=== PATIENT | male | born 1950 | race Caucasian/White ===

== ENCOUNTER 2016-06-09 12:14 | Inpatient (IN) | payer BC, OTHER, MEDICARE ==
[~2016-06-09] VITALS: Ht 170.2 cm; Wt 86.9 kg
[2016-06-09] VITALS (11 sets, daily range): BP systolic 80–154; BP diastolic 50–74
[~2016-06-09 12:14] MED LIST: AMLO2.5T OR; ASPI325T OR; CARV12.5 OR; DILA2TAB OR; INSULANT SC; LIPI20TA OR; NITR0.4S SL; PLAV75TA2 OR; SENN8.6C PO; VITA-122 PO; [UNRECOGNIZED DRUG - REMARK] TOP; novalog SQ
[2016-06-09] MEDS ORDERED: ONDANSETRON 4MG/2ML VIAL (J2405) As Ordered ONE ×3 (13:16→21:15)
[2016-06-09] MEDS ORDERED: MORPHINE 4 MG/ML 1ML SYRINGE As Ordered ONE ×2 (13:16→17:26)
[2016-06-09 13:33] LABS: BASO % 0.4 % (0.0-1.0); EOS # 0.2 K/mm3 (0.0-0.50); EOS % 2.1 % (0.0-3.0); LARGE UNSTAINED CELL # 0.2 K/mm3 (0.0-0.4); LARGE UNSTAINED CELL % 2.3 % (0.0-4.0); LYMPH % 11.5 % (24.0-44.0); MEAN CORPUSCULAR HEMOGLOBIN 30.1 pg (27.0-33.0); MEAN CORPUSCULAR HGB CONC 33.5 g/dl (32.0-36.5); MEAN CORPUSCULAR VOLUME 89.7 fl (80.0-96.0); MONO # 0.5 K/mm3 (0.0-0.8); MONO % 5.4 % (0.0-5.0); NEUTROPHILS # 6.6 K/mm3 (1.8-7.7); NEUTROPHILS % 78.4 % (36.0-66.0); PLATELET COUNT, AUTOMATED 243 k/mm3 (150-450); RED CELL DISTRIBUTION WIDTH 13.2 % (11.5-14.5); WHITE BLOOD COUNT 8.4 K/mm3 (4.0-10.0)
[2016-06-09 13:45] LABS: ALBUMIN/GLOBULIN RATIO 0.63 (1.00-1.93); BILIRUBIN,DIRECT 0.2 MG/DL (0.0-0.2); BILIRUBIN,TOTAL 0.5 MG/DL (0.2-1.0); CALCIUM LEVEL 8.7 MG/DL (8.8-10.2); CREATININE FOR GFR 4.57 MG/DL (0.70-1.30); GLOMERULAR FILTRATION RATE 13.7 (>49); POTASSIUM SERUM 4.3 MEQ/L (3.5-5.1); TOTAL PROTEIN 7.8 GM/DL (6.4-8.2)
--- NOTE | 2016-06-09 14:22 | REP ---
Abdominal series 06/09/2016 Indication: Abdominal pain Comparison: PA and lateral chest 02/08/16 cardiac silhouette is mildly enlarged without change. Scattered areas of interstitial fibrotic scarring are noted bilaterally. Small area of parenchymal disease within the left infrahilar location is most compatible with interstitial scarring superimposed on rib rather than a developing pulmonary nodule. Bones and soft tissues are within normal limits Impression 1. Interstitial /fibrotic scarring bilaterally. 2. Ill-defined left infrahilar parenchymal density, likely scarring. Recommend correlation with a PA and lateral chest or CT of the chest in further characterization Flat and left-side down decubitus film 06/09/2016 Findings: There is moderate stool as well as some residual oral contrast or dense material from medication seen within the left colon and to a lesser extent transverse colon. The bowel gas pattern is nonspecific. There is no evidence of free intraperitoneal air or obstruction. There has been prior right total hip arthroplasty. Impression 1. Moderate stool within the transverse and left colon. Dense material primarily within the left colon represents previous oral contrast ingestion and/or medication. Signed by Katiuska Abbott MD 06/09/2016 01:59 P
[2016-06-09] MEDS ORDERED: ASPI1TAB PO (15:02)
[2016-06-09] MEDS ORDERED: ATOR1TAB21 PO (15:02)
[2016-06-09] MEDS ORDERED: LANTINJ4 SC (15:02)
[2016-06-09] MEDS ORDERED: TORS10TA3 PO (15:02)
[2016-06-09] MEDS ORDERED: CARV12.5 PO (15:02)
[2016-06-09] MEDS ORDERED: CINN500T PO (15:02)
[2016-06-09] MEDS ORDERED: INSUHUMDS SC (15:02)
[2016-06-09] MEDS ORDERED: PLAV75TA38 PO (15:02)
[2016-06-09] MEDS ORDERED: AMLO10TA2 PO (15:02)
--- NOTE | 2016-06-09 15:40 | HPEPDOC ---
Medical History and Physical Date of Admission 06/09/16 History and Physical ATTENDING: Dr. Dr Keating PCP: [facility] CC: Rectal pain HPI: 66yoM with a past medical history significant for CKD4, CAD, Cardiac stent , HLD, HTN, IDDM who states he was seen at ED 06/01 for urinary retention and coretz catheter was placed. Subsequently, he experienced constipation, groin pain and rectal pain and went to [facility] where he received imaging including contrast material. He was disimpacted of stool, given bowel care and released. He has persistent symptoms and went back again 06/06/16 and was transferred to [facility] for further eval where he was disimpacted again under sedation in ED and released. He continued to have leakage of stool and pain. Today he had appt with Urology and was referred to ED for evaluation. Denies any fevers, chills, weakness, fatigue, CHRISTINE, CP, SOB, cough, palpitations, abdominal pain, N/V/D or changes in bowel or bladder habits. Upon presentation to the hospital the patient was found to have obstipation, thus the hospitalist team was consulted. PMHx: CKD4- Dr Carrillo Nephrology [facility] CAD/Stents HLD HTN IDDM PSHX: Cardiac stents Rt CE Fistula Lt Forearm SOCHX: Resides in: [place] Marital Status: Kids: 3 Employment: retired [employer] Tobacco use: denies ETOH: denies Illicit Drugs: Denies Recent travel: denies Advanced directives: none FAMHX: Mother: pneumonia Father: [place] 69 Siblings: Sister Alive, well. Sister Ca tongue. Children: Alive, well Unexpected deaths due to medical reasons: None. ROS: As noted in HPI, otherwise 11pt ROS of systems reviewed and unremarkable PE: GEN: 66yoM, appears stated age. Well-nourished, well developed. No acute distress. Alert and oriented x 3. Pleasant, interactive. HEENT: Normocephalic, atraumatic. Pupils are equal, round, and reactive to light. Extraocular movements are intact. No nystagmus appreciated. Sclera are nonicteric. Conjunctiva without injection. Nose midline. Nasal turbinates without bogginess. No facial asymmetry. Moist mucous membranes. Dentition fair. Pharynx pink and moist, no cobblestoning. Neck supple, trachea midline. No lymphadenopathy or thyromegaly appreciated. CHEST: Regular rate and rhythm, +S1, +S2 LUNGS: Clear to auscultation bilaterally. No wheezes, rales, or rhonchi. Breathing appears symmetric and easy. Patient is speaking in full sentences. No accessory muscle use. ABD: Round, distended. hypoactive Bowel sounds throughout. No rebound or guarding. No costovertebral angle tenderness. Cortez catheter in place. EXT: Pulses 2+ bilaterally dorsalis pedis and radial. No lower extremity edema appreciated. SKIN: [place], dry, warm. Capillary refill <2sec. No rashes. NEURO: Alert and oriented x 3. Cranial nerves III-XII are intact. No focal deficits appreciated. CT: Moderate stool transverse and left colon A&P: 66yoM with a past medical history significant for CKD4, CAD, Cardiac stent , HLD, HTN, IDDM who states he was seen at ED 06/01 for urinary retention and cortez catheter was placed. Subsequently, he experienced constipation, groin pain and rectal pain and went to [facility] where he received imaging including contrast material. He was disimpacted of stool, given bowel care and released. He has persistent symptoms and went back again 06/06/16 and was transferred to [facility] for further eval where he was disimpacted again under sedation in ED and released. He continued to have leakage of stool and pain. Today he had appt with Urology and was referred to ED for evaluation. The patient will be admitted to /S for at least [address] Keating's service. Pt is discussed with Dr Shepard. 1. Obstipation. Clears. Bowel care- Leeannly. Request Dr Ibrahim to evaluate/ follow. Spoke with Dr Ibrahim who agrees to see Pt and evaluate. Recommends additional bowel care including Senokot and colace. 2. CKD4. Appears to be at baseline status. Follows with Nephrology in [place]. 3. CAD/Stents. Cont Norvasc/Coreg with hold parameters. ASA/Plavix. 4. HTN. Torsemide on hold. 5. IDDM. Clears. Levemir at reduced dose related to decreased po intake. SSI. 6. HTD. Statin DVT prophylaxis. SCD/TEDS The patient is a Full code Attending Note: I have independently examined this patient and all aspects of the exam and treatment decisions have been discusse. A member of the hospitalist staff will continue to follow this patient through discharge. Vital Signs 139/72 67 18 97.8 96 % Laboratory Data Labs 24H Laboratory Tests 2 06/09/16 13:12: Aspartate Amino Transf (AST/SGOT) 23, Alanine Aminotransferase (ALT/SGPT) 31, Alkaline Phosphatase 69, Total Bilirubin 0.5, Direct Bilirubin 0.2, Albumin 3.0L , Albumin/Globulin Ratio 0.63L, Anion Gap 10, White Blood Count 8.4, Red Blood Count 3.73L, Hemoglobin 11.2L, Hematocrit 33.4L, Mean Corpuscular Volume 89.7, Mean Corpuscular Hemoglobin 30.1, Mean Corpuscular Hemoglobin Concent 33.5, Red Cell Distribution Width 13.2, Platelet Count 243, Neutrophils (%) (Auto) 78.4H, Lymphocytes (%) (Auto) 11.5L, Monocytes (%) (Auto) 5.4H, Eosinophils (%) (Auto) 2.1, Basophils (%) (Auto) 0.4, Neutrophils # (Auto) 6.6, Lymphocytes # (Auto) 1.0L, Monocytes # (Auto) 0.5, Eosinophils # (Auto) 0.2, Basophils # (Auto) 0.0, Calcium Level 8.7L, Estimated Mean Plasma Glucose 134H, Glomerular Filtration Rate 13.7L, Hemoglobin A1c 6.3H, Large Unclassified Cells # 0.2, Large Unclassified Cells % 2.3, Total Protein 7.8 CBC/BMP Laboratory Tests 06/09/16 13:12 Red Blood Count 3.73 L, Mean Corpuscular Volume 89.7, Mean Corpuscular Hemoglobin 30.1, Mean Corpuscular Hemoglobin Concent 33.5, Red Cell Distribution Width 13.2, Neutrophils (%) (Auto) 78.4 H, Lymphocytes (%) (Auto) 11.5 L, Monocytes (%) (Auto) 5.4 H, Eosinophils (%) (Auto) 2.1, Basophils (%) ( Auto) 0.4, Neutrophils # (Auto) 6.6, Lymphocytes # (Auto) 1.0 L, Monocytes # ( Auto) 0.5, Eosinophils # (Auto) 0.2, Basophils # (Auto) 0.0 Home Medications Scheduled Amlodipine Besylate (Amlodipine Besylate) 10 Mg Tab 10 MG PO QHS Aspirin (Aspirin 81) 81 Mg Tab 81 MG PO QHS Atorvastatin Calcium (Atorvastatin Calcium) 20 Mg Tab 60 MG PO QHS Carvedilol (Carvedilol) 12.5 Mg Tab 25 MG PO QHS TAKES 2 12.5MG TABS AT QHS Cinnamon Bark (Cinnamon) 500 Mg Tab 1,000 MG PO QHS Clopidogrel Bisulfate (Plavix) 75 Mg Tab 75 MG PO QHS Insulin Glargine (Lantus Solostar) 100 Unit/Ml Inj 50 UNITS SC QHS Insulin Human Lispro (Humalog) 1 Units/0.01 Ml Inj 1 DOSE SC AC Torsemide (Torsemide) 10 Mg Tab 10 MG PO QHS Allergies Coded Allergies: No Known Drug Allergy (Verified Allergy, Unknown, 09/04/12) Tiffanie Torre Jun 09, 2016 15:40 KACI SHEPARD DO Jun 09, 2016 20:47
[2016-06-09] MEDS ORDERED: GLUCAGON FOR INJ 1 MG VIAL (J1610) SC PRN (15:45)
[2016-06-09] MEDS ORDERED: DEXTROSE 50% 50 ML SYRINGE IV PRN (15:45)
[2016-06-09] MEDS ORDERED: GLUCOSE 4 GM CHEW TABLET PO PRN (15:45)
[2016-06-09] MEDS: HumaLOG INSULIN (NovoLOG) PER UNIT SC SCH ×2 (17:30→21:00)
--- NOTE | 2016-06-09 18:09 | EDDOCDS ---
Physician Documentation [facility] Name: Rod El Age: 66 yrs Sex: Male : 1950 Arrival Date: 06/09/2016 Time: 12:14 Bed 9 Private MD: Tosha Mota A.N.P. Disposition: 06/09 15:08 Critical Care: Critical care not applicable. pc Disposition: 06/09/16 15:10 Hospitalization ordered by Jamar Ricardo for Inpatient Admission. Preliminary diagnosis are Fecal impaction, Constipation, Chronic kidney disease, stage 4 (severe). - Bed requested for 4 [place]. - Status is Inpatient Admission. jjr - Condition is Stable. - Problem is an ongoing problem. - Symptoms are unchanged. HPI: 13:46 This 66 yrs old Male presents to ER via Walkin/Carried/Asstd with complaints pc of Rectal Pain. 13:46 The history is obtained from the patient, the patient's family/friend. He has had pc severe constipation, with secondary urinary retention, over the past 10-14 days. He has been seen at twice, with labs and CTs and manual disimpaction, then transferred to [facility], where he underwent procedural sedation due to extreme rectal pain, and another disimpaction. He has been only passing liquid since, with firm "small rocks". He denies any rectal bleeding. He has severe rectal pain. 13:51 At their worst, the symptoms were a 10 out of 10. In the emergency department, the pc symptoms are a 10 out of 10. The patient has not experienced similar symptoms in the past. The patient has been recently seen by a urologist. Historical: - Allergies: no known allergies; - Home Meds: 1. clopidogrel 75 mg oral tab 1 tab once daily (Last dose: 06/08/2016 20:00) 2. amlodipine 10 mg Oral tab 1 tab once daily (Last dose: 06/08/2016 07:00) 3. torsemide 10 mg oral tab 1 tab once daily (Last dose: 06/08/2016 07:00) 4. atorvastatin 60mg oral tab 1 tab once daily (Last dose: 06/08/2016 20:00) 5. carvedilol 12.5 mg oral tab 1 tab 2 times per day (Last dose: 06/08/2016 20:00) 6. Lantus 100 unit/mL Sub-Q soln (Last dose: 06/08/2016 20:00) 7. Novolog 100 unit/mL Sub-Q soln (Last dose: 06/09/2016 07:00) - PMHx: Stage 4 kidney disease; CAD; Hypertension; Hypercholesterolemia; Diabetes - IDDM: controlled; - PSHx: cardiac stents; right hip replacement; fistula placement; - The history from nurses notes was reviewed: and I agree with what is documented. - Social history: Smoking status: Patient states was never smoker of tobacco. No barriers to communication noted, Speaks appropriately for age. - : The pt / caregiver states he / she is not on anticoagulants. Home medication list is obtained from the patient. - Hospitalizations: : No recent hospitalization is reported. - Exposure Risk Screening:: None identified. - Immunization history:: All immunizations up-to-date. - Family history: Not pertinent. - Social history:: the patient is a non-smoker, the patient does not drink alcohol. ROS: 13:56 All systems are negative except as listed. pc Exam: 13:56 General Appearance: alert, the patient is in moderate distress. pc 13:56 EENT: normal eye inspection, ears, nose and throat normal, pharynx normal, mucous membranes moist 13:56 Neck: The exam reveals no acute abnormalities. ROM is normal and painless. No nuchal rigidity is noted.. 13:56 Respiratory: no respiratory distress, normal breath sounds, chest non-tender. 13:56 CVS: regular pulse rate, regular rhythm, normal S1 and S2, no murmurs, strong peripheral pulses, normal capillary refill. 13:56 Abdomen: soft, non-tender, no organomegaly, normal bowel sounds, Rectal exam: tone is normal, stool is tripathi, hard, tenderness is palpated, fecal impaction is noted. 13:56 Back: normal inspection. 13:56 Skin: skin color is normal, warm, dry. 13:56 Extremities: The extremities have a grossly normal appearance, are non-tender, without acute ROM abnormalities. 13:56 Neuro: oriented x 3, cranial nerves normal as tested, no motor deficits, no sensory deficits. 13:56 Psych: normal mood. 13:56 : bladder is non-distended, non-tender, Palmer in place, Urine is clear. pc Vital Signs: 12:16 BP 126 / 70; Pulse 72; Resp 16; Temp 97.8; Pulse Ox 99% on R/A; Weight 88 kg / 194.01 sew lbs; Height 5 ft. 7 in. (170.18 cm); Pain 10/10; 14:00 BP 139 / 72; Pulse 67; Resp 18; Pulse Ox 96% on R/A; Pain 1/10; jjr 16:44 BP 136 / 72; Pulse 69; Resp 18; Temp 98(O); Pulse Ox 94% on R/A; Pain 7/10; jjr 17:51 BP 108 / 59; Pulse 68; Resp 18; Pulse Ox 92% on R/A; jjr 18:04 BP 138 / 61 (auto/); Pulse 76; Resp 20; Pulse Ox 92% on R/A; Pain 7/10; jjr 12:16 Body Mass Index 30.38 (88.00 kg, 170.18 cm) sew MDM: 13:06 IV Saline Lock ordered. pc 13:06 Ondansetron 4 mg IVP once ordered. pc 13:06 morphine 4 mg IVP once ordered. pc 13:08 CBC with Diff Ordered. EDMS 13:08 MED Profile Ordered. EDMS 13:08 Liver Profile Ordered. EDMS 13:08 A1C Ordered. EDMS 13:08 Abdomen, Flat\\E\\Upright,PA Chest Ordered. EDMS 13:57 Differential Diagnosis: fecal impaction with rectal pain; urinary retention; CKD. Plan: pc labs, imaging, meds. 13:59 Financial registration complete. lg 14:18 [facility] Payment Agreement was scanned into [employer] and attached to record. lg 14:45 CBC with Diff Reviewed. pc 14:45 MED Profile Reviewed. pc 14:45 Liver Profile Reviewed. pc 14:45 Abdomen, Flat\\E\\Upright,PA Chest Reviewed. pc 14:57 A1C Reviewed. pc 15:08 Data reviewed: old medical records, vital signs, nurses notes, lab test results, all pc radiology studies and available results. Test interpretation: LAB - all labs as ordered have been reviewed, interpreted and considered in the overall management of the clinical presentation; X-RAY - interpreted by Radiologist and personally reviewed, 3-view abdomen series; constipation. The patient has been re-examined and re-evaluated. The patient's symptoms have mildly improved after treatment. Physician consultation: Dr. Jamar Ricardo DO was contacted at 15:09, regarding admission. Disposition: The historical points, examination findings, and any diagnostic results supporting the provided diagnosis, were discussed with the patient or legal guardian. The need for further work-up and/or treatment in the hospital was explained. 15:10 BED REQUEST+ADM ordered. EDMS 15:43 Admission / Observation Status ordered. EDMS 15:47 CLEAR LIQUIDS DIET ordered. EDMS 17:28 morphine 4 mg IVP once ordered. jjr Administered Medications: 13:22 Drug: Ondansetron 4 mg [ondansetron HCl 2 mg/mL intravenous solution (2 mL)] Route: jjr IVP; Site: right antecubital; 13:22 Drug: morphine 4 mg [morphine 4 mg/mL intravenous cartridge (1 mL)] Route: IVP; Site: jjr right antecubital; 14:00 Follow up: BP 139 / 72; Pulse 67 bpm; Resp 18 bpm; Pulse Ox 96% RA; Pain 06/13 Adult jjr 17:30 Drug: morphine 4 mg [morphine 4 mg/mL intravenous cartridge (1 mL)] Route: IVP; Site: jjr right antecubital; Signatures: Dispatcher [employer] EDEleuterio Shannon MD MD pc Daly, Linda, District Manager In Training Unit lbd Karina Mei, Yosef Navas lg Betina Johnson, RN RN jCasey Gordon, RN RN [id number] The chart was reviewed and I authenticate all verbal orders and agree with the evaluation and treatment provided.Corrections: (The following items were deleted from the chart) 13:52 13:46 He has had severe constipation, with secondary urinary retention, over the past pc 10-14 days. He has been seen at twice, with labs and CTs and manual disimpaction, then transferred to [facility], where he underwent procedural sedation due to extreme rectal pain, and another disimpaction. He has been only passing liquid since, 13:55 13:51 The patient has been recently seen by [facility]: 14:18 [facility] Payment Agreement lg MTDD
--- NOTE | 2016-06-09 18:09 | EDDOCDS ---
Nurse's Notes [facility] Name: Rod El Age: 66 yrs Sex: Male : 1950 Arrival Date: 06/09/2016 Time: 12:14 Bed 9 Private MD: Tosha Mota A.N.P. Diagnosis: Fecal impaction;Constipation;Chronic kidney disease, stage 4 (severe) Presentation: 06/09 12:23 Presenting complaint: Patient states: states that he has been having trouble with ml6 urinary retention and constipation, Family demanding that he sees a executive services administrator and that he be admitted. Adult Sepsis Screening: The patient does not have new or worsening altered mentation. Patient's respiratory rate is less than 22. Systolic blood pressure is greater than 100. Patient has a qSOFA score of 0- Negative Sepsis Screen. Suicide/Homicide risk assessment- the patient denies having any suicidal and/or homicidal ideations and does not present with any other emotional, behavioral or mental health complaints. Status: Patient is not a service writer or dependent. Transition of care: patient was not received from another setting of care. 12:23 Acuity: JOSEF Level 3 ml6 12:23 Method Of Arrival: Walkin/Carried/Asstd ml6 Triage Assessment: 12:32 General: Appears in no apparent distress, Behavior is anxious, cooperative. Pain: ml6 Location: abdomen. The patient is triaged at the bedside. See Assessment in Nurses Notes section of ED record. The patient is triaged at the bedside. See Assessment in Nurses Notes section of ED record. Cardiovascular: No deficits noted. Respiratory: No deficits noted. GI: Abdomen is distended, Bowel sounds present X 4 quads. Abd is tender to palpation X 4 quads. Historical: - Allergies: no known allergies; - Home Meds: 1. clopidogrel 75 mg oral tab 1 tab once daily (Last dose: 06/08/2016 20:00) 2. amlodipine 10 mg Oral tab 1 tab once daily (Last dose: 06/08/2016 07:00) 3. torsemide 10 mg oral tab 1 tab once daily (Last dose: 06/08/2016 07:00) 4. atorvastatin 60mg oral tab 1 tab once daily (Last dose: 06/08/2016 20:00) 5. carvedilol 12.5 mg oral tab 1 tab 2 times per day (Last dose: 06/08/2016 20:00) 6. Lantus 100 unit/mL Sub-Q soln (Last dose: 06/08/2016 20:00) 7. Novolog 100 unit/mL Sub-Q soln (Last dose: 06/09/2016 07:00) - PMHx: Stage 4 kidney disease; CAD; Hypertension; Hypercholesterolemia; Diabetes - IDDM: controlled; - PSHx: cardiac stents; right hip replacement; fistula placement; - The history from nurses notes was reviewed: and I agree with what is documented. - Social history: Smoking status: Patient states was never smoker of tobacco. No barriers to communication noted, Speaks appropriately for age. - : The pt / caregiver states he / she is not on anticoagulants. Home medication list is obtained from the patient. - Hospitalizations: : No recent hospitalization is reported. - Exposure Risk Screening:: None identified. - Immunization history:: All immunizations up-to-date. - Family history: Not pertinent. - Social history:: the patient is a non-smoker, the patient does not drink alcohol. Screenin:44 Fall Risk. jjr 12:44 Screening information is obtained from the patient. Fall risk: At risk due to gait jjr disturbance, The following interventions are performed due to a positive Fall Risk Screen: added to special handling. Assistance ADL's: Requires assistance with meal preparation, this assistance is provided by family members, housework, assistance is provided by family members. Abuse/DV Screen: The patient / caregiver reports he/she is: not in a situation that causes fear, pain or injury. Nutritional screening: Had unintentional weight loss of 10 pounds or more. Advance Directives: There is no active DNR order. home support is adequate. Assessment: 12:42 General: Appears uncomfortable, well nourished, well groomed, Behavior is appropriate jjr for age. Pain: Location: gluteal cleft. Neurological: No deficits noted. Respiratory: Airway is patent Respiratory effort is even, unlabored, Respiratory pattern is regular. GI: Abdomen is non- distended Bowel sounds present X 4 quads. Abd is soft and non tender X 4 quads. Reports constipation, decreased appetite. : Palmer in place to gravity drainage. Derm: Skin is pink, warm & dry. 14:01 General: Appears in no apparent distress, rectal pain 1/10 denies needs at this time. jjr 14:55 General: Appears in no apparent distress, Behavior is appropriate for age. General: jjr denies needs at this time, family at bedside. Neurological: No deficits noted. Respiratory: No deficits noted. Derm: No deficits noted. 15:54 General: Appears in no apparent distress, diet gingerale provided, pt reports jjr increasing pain to rectal area. 16:44 General: Appears in no apparent distress, reports constant "contraction like" pain to jjr rectum. 17:51 General: Appears uncomfortable, Behavior is appropriate for age, pt passed clots and jjr now has steady ooze of red fluid from rectum, medicated per order. 18:07 General: pt remains uncomfortable reports slight pain relief but still with spikes of jjr 10/10, Dr Ricardo aware of last bowel movement and need for pain control orders. Vital Signs: 12:16 BP 126 / 70; Pulse 72; Resp 16; Temp 97.8; Pulse Ox 99% on R/A; Weight 88 kg; Height 5 sew ft. 7 in. (170.18 cm); Pain 10/10; 14:00 BP 139 / 72; Pulse 67; Resp 18; Pulse Ox 96% on R/A; Pain 1/10; jjr 16:44 BP 136 / 72; Pulse 69; Resp 18; Temp 98(O); Pulse Ox 94% on R/A; Pain 7/10; jjr 17:51 BP 108 / 59; Pulse 68; Resp 18; Pulse Ox 92% on R/A; jjr 18:04 BP 138 / 61 (auto/); Pulse 76; Resp 20; Pulse Ox 92% on R/A; Pain 7/10; jjr 12:16 Body Mass Index 30.38 (88.00 kg, 170.18 cm) [facility] [place] Vitals: 12:16 Log In Time: June 09, 2016 at 12:16. [facility] [place] ED Course: 12:16 Patient visited by Sahra Salazar. sew 12:16 Tosha Mota is Private Physician. sew 12:16 Patient moved to Waiting sew 12:17 Patient visited by Sahra Salazar. sew 12:17 Patient moved to Pre RCE sew 12:27 Triage Initiated ml6 12:32 Betina Johnson, RN is Primary Nurse. ml6 12:32 Patient moved to 9 ml6 12:43 The patient / caregiver is instructed regarding the plan of care and ED course. jjr 12:44 Patient visited by Betina Johnson RN. jjr 12:47 Eleuterio Portillo MD is Attending Physician. pc 13:05 Patient visited by Eleuterio Portillo MD. pc 13:14 A1C Sent. jjr 13:14 Liver Profile Sent. jjr 13:14 MED Profile Sent. jjr 13:14 CBC with Diff Sent. jjr 14:01 Patient visited by Betina Johnson RN. jjr 14:01 Inserted saline lock: 20 gauge in right antecubital area and blood collected. Labs jjr drawn. (by ED staff). Sent per order to lab. 14:17 Patient name changed from Rod\\S\\A\\S\\Bourcy Ii\\S\\ to Rod\\S\\A\\S\\Bourcy. EDMS 14:18 [place] Payment Agreement was scanned into [employer] and attached to record. lg 14:45 Abdomen, Flat\\E\\Upright,PA Chest Returned. EDMS 14:56 Patient visited by Betina Johnson RN. jjr 15:10 Jamar Ricardo DO is Hospitalizing Provider. pc 15:54 Patient visited by Betina Johnson RN. jjr Administered Medications: 13:22 Drug: Ondansetron 4 mg [ondansetron HCl 2 mg/mL intravenous solution (2 mL)] Route: jjr IVP; Site: right antecubital; 13:22 Drug: morphine 4 mg [morphine 4 mg/mL intravenous cartridge (1 mL)] Route: IVP; Site: jjr right antecubital; 14:00 Follow up: BP 139 / 72; Pulse 67 bpm; Resp 18 bpm; Pulse Ox 96% RA; Pain 06/13 Adult jjr 17:30 Drug: morphine 4 mg [morphine 4 mg/mL intravenous cartridge (1 mL)] Route: IVP; Site: jjr right antecubital; Order Results: Lab Order: CBC with Diff; SPEC'M 06/09/16 13:12 Test: WHITE BLOOD COUNT; Value: 8.4; Range: 4.0-10.0; Units: K/mm3; Status: F Test: RED BLOOD COUNT; Value: 3.73; Range: 4.30-6.10; Abnormal: Below low normal; Units: M/mm3; Status: F Test: HEMOGLOBIN; Value: 11.2; Range: 14.0-18.0; Abnormal: Below low normal; Units: g/dl; Status: F Test: HEMATOCRIT; Value: 33.4; Range: 42.0-52.0; Abnormal: Below low normal; Units: %; Status: F Test: MEAN CORPUSCULAR VOLUME; Value: 89.7; Range: 80.0-96.0; Units: fl; Status: F Test: MEAN CORPUSCULAR HEMOGLOBIN; Value: 30.1; Range: 27.0-33.0; Units: pg; Status: F Test: MEAN CORPUSCULAR HGB CONC; Value: 33.5; Range: 32.0-36.5; Units: g/dl; Status: F Test: RED CELL DISTRIBUTION WIDTH; Value: 13.2; Range: 11.5-14.5; Units: %; Status: F Test: PLATELET COUNT, AUTOMATED; Value: 243; Range: 150-450; Units: k/mm3; Status: F Test: NEUTROPHILS %; Value: 78.4; Range: 36.0-66.0; Abnormal: Above high normal; Units: %; Status: F Test: LYMPH %; Value: 11.5; Range: 24.0-44.0; Abnormal: Below low normal; Units: %; Status: F Test: MONO %; Value: 5.4; Range: 0.0-5.0; Abnormal: Above high normal; Units: %; Status: F Test: EOS %; Value: 2.1; Range: 0.0-3.0; Units: %; Status: F Test: BASO %; Value: 0.4; Range: 0.0-1.0; Units: %; Status: F Test: LARGE UNSTAINED CELL %; Value: 2.3; Range: 0.0-4.0; Units: %; Status: F Test: NEUTROPHILS #; Value: 6.6; Range: 1.8-7.7; Units: K/mm3; Status: F Test: LYMPH #; Value: 1.0; Range: 1.5-4.5; Abnormal: Below low normal; Units: K/mm3; Status: F Test: MONO #; Value: 0.5; Range: 0.0-0.8; Units: K/mm3; Status: F Test: EOS #; Value: 0.2; Range: 0.0-0.50; Units: K/mm3; Status: F Test: BASO #; Value: 0.0; Range: 0.0-0.2; Units: K/mm3; Status: F Test: LARGE UNSTAINED CELL #; Value: 0.2; Range: 0.0-0.4; Units: K/mm3; Status: F Lab Order: MED Profile; SPEC'M 06/09/16 13:12 Test: GLUCOSE, FASTING; Value: 101; Range: 80-110; Units: MG/DL; Status: F Test: BLOOD UREA NITROGEN; Value: 63; Range: 7-18; Abnormal: Above high normal; Units: MG/DL; Status: F Test: CREATININE FOR GFR; Value: 4.57; Range: 0.70-1.30; Abnormal: Above high normal; Units: MG/DL; Status: F Test: GLOMERULAR FILTRATION RATE; Value: 13.7; Range: >49; Abnormal: Below low normal; Status: F Test: SODIUM LEVEL; Value: 137; Range: 136-145; Units: MEQ/L; Status: F Test: POTASSIUM SERUM; Value: 4.3; Range: 3.5-5.1; Units: MEQ/L; Status: F Test: CHLORIDE LEVEL; Value: 105; Range: 98-107; Units: MEQ/L; Status: F Test: CARBON DIOXIDE LEVEL; Value: 22; Range: 21-32; Units: MEQ/L; Status: F Test: ANION GAP; Value: 10; Range: 8-16; Units: MEQ/L; Status: F Test: CALCIUM LEVEL; Value: 8.7; Range: 8.8-10.2; Abnormal: Below low normal; Units: MG/DL; Status: F Test Note: ; Units are mL/min/1.73 m2 Chronic Kidney Disease Staging per NKF: Stage I & II GFR >=60 Normal to Mildly Decreased Stage III GFR 30-59 Moderately Decreased Stage IV GFR 15-29 Severely Decreased Stage V GFR <15 Very Little GFR Left ESRD GFR <15 on FUSE COILER Lab Order: Liver Profile; [facility] 06/09/16 13:12 Test: AST/SGOT; Value: 23; Range: 15-37; Units: U/L; Status: F Test: ALT/SGPT; Value: 31; Range: 12-78; Units: U/L; Status: F Test: ALKALINE PHOSPHATASE; Value: 69; Range: 45-117; Units: U/L; Status: F Test: BILIRUBIN,TOTAL; Value: 0.5; Range: 0.2-1.0; Units: MG/DL; Status: F Test: BILIRUBIN,DIRECT; Value: 0.2; Range: 0.0-0.2; Units: MG/DL; Status: F Test: TOTAL PROTEIN; Value: 7.8; Range: 6.4-8.2; Units: GM/DL; Status: F Test: ALBUMIN; Value: 3.0; Range: 3.2-5.2; Abnormal: Below low normal; Units: GM/DL; Status: F Test: ALBUMIN/GLOBULIN RATIO; Value: 0.63; Range: 1.00-1.93; Abnormal: Below low normal; Status: F Lab Order: A1C; [facility]' 06/09/16 13:12 Test: HEMOGLOBIN A1c; Value: 6.3; Range: 4.5-6.2; Abnormal: Above high normal; Units: %; Status: F Test: ESTIMATED AVERAGE GLUCOSE; Value: 134; Range: 60-110; Abnormal: Above high normal; Units: MG/DL; Status: F Radiology Order: Abdomen, Flat\\E\\Upright,PA Chest Test: Abdomen, Flat\\E\\Upright,PA Chest REASON FOR EXAMINATION: Abdomen Pain; Abdominal series 06/09/2016; ; Indication: Abdominal pain; ; Comparison: PA and lateral chest 02/08/16 cardiac silhouette is mildly enlarged; without change. Scattered areas of interstitial fibrotic scarring are noted; bilaterally.; ; Small area of parenchymal disease within the left infrahilar location is most; compatible with interstitial scarring superimposed on rib rather than a; developing pulmonary nodule. Bones and soft tissues are within normal limits; ; Impression; 1. Interstitial /fibrotic scarring bilaterally.; 2. Ill-defined left infrahilar parenchymal density, likely scarring. Recommend; correlation with a PA and lateral chest or CT of the chest in further; characterization; ; Flat and left-side down decubitus film 06/09/2016; ; Findings: There is moderate stool as well as some residual oral contrast or; dense material from medication seen within the left colon and to a lesser extent; transverse colon. The bowel gas pattern is nonspecific. There is no evidence of; free intraperitoneal air or obstruction.; ; There has been prior right total hip arthroplasty.; ; Impression; 1. Moderate stool within the transverse and left colon. Dense material; primarily within the left colon represents previous oral contrast ingestion; and/or medication.; ; ; Signed by; Katiuska Abbott MD 06/09/2016 01:59 P; Outcome: 15:10 Decision to Hospitalize by Provider. pc 18:08 Patient left the ED. [email or web address] Signatures: Dispatcher [employer] EDMS Eleuterio Portillo MD MD pc Ganter, LoriLee, Reg Reg lg Raymond, Jessica, RN RN Casey Vidal RN RN ml6 Sahra Salazar MILENA
[2016-06-09] MEDS ORDERED: SODIUM CHLORIDE 0.9% 1000 ML IV ONE (18:45)
[2016-06-09] MEDS ORDERED: BUPIVACAINE/EPIN 0.25% 30 ML VIAL As Ordered ONE (19:15)
[2016-06-09 19:20] LABS: MEAN CORPUSCULAR HEMOGLOBIN 30.7 pg (27.0-33.0); MEAN CORPUSCULAR HGB CONC 34.3 g/dl (32.0-36.5); MEAN CORPUSCULAR VOLUME 89.3 fl (80.0-96.0); RED CELL DISTRIBUTION WIDTH 14.2 % (11.5-14.5); WHITE BLOOD COUNT 9.4 K/mm3 (4.0-10.0)
[2016-06-09] MEDS ORDERED: PROPOFOL 200 MG/20 ML VIAL As Ordered ONE (19:36)
[2016-06-09] MEDS ORDERED: fentaNYL 100 MCG/2 ML INJECTION (J3010) As Ordered ONE ×2 (19:36→20:18)
[2016-06-09] MEDS ORDERED: LIDOCAINE 2% INJ 100 MG/5 ML SDV (FOR ANES.) As Ordered ONE (19:36)
[2016-06-09] MEDS ORDERED: SUCCINYLCHOLINE 100 MG/5 ML SYRINGE (J0330) As Ordered ONE (19:36)
[2016-06-09] MEDS ORDERED: MIDAZOLAM INJ 2 MG/2 ML VIAL (J2250) As Ordered ONE (19:36)
[2016-06-09] MEDS ORDERED: ROCURONIUM BROMIDE 50 MG/5 ML VIAL As Ordered ONE (19:36)
[2016-06-09] MEDS ORDERED: GOLYTELY SOLN 4000 ML BTL PO ONE (20:00)
[2016-06-09] MEDS ORDERED: PHENYLephrine HCL 500 MCG/5 ML (100MCG/ML) SYRINGE (J2370) As Ordered ONE (20:08)
[2016-06-09] MEDS ORDERED: CALCIUM CHLORIDE 10% 1 GM/10 ML SYR As Ordered ONE (20:08)
[2016-06-09] MEDS ORDERED: ePHEDrine SULFATE 25 MG/5 ML(5MG/ML) SYRINGE As Ordered ONE ×2 (20:08→20:14)
[2016-06-09] MEDS ORDERED: PHENYLEPHRINE INJ 10MG/ML VIAL (J2370) As Ordered ONE (20:13)
[2016-06-09] MEDS ORDERED: GLYCOPYRROLATE INJ 0.2 MG/ML 2 ML VIAL As Ordered ONE (20:13)
[2016-06-09] MEDS ORDERED: BUPIVACAINE LIPOSOME/PF 1.3% 20ML (266MG/20ML) VIAL (EXPAREL) As Ordered ONE (20:15)
[2016-06-09] MEDS: SENNA 8.6 MG TAB (SENOKOT) PO SCH (21:00)
[2016-06-09] MEDS ORDERED: ASPIRIN 81 MG ENTERIC TAB PO SCH (21:00)
[2016-06-09] MEDS ORDERED: CLOPIDOGREL 75 MG TAB PO SCH (21:00)
[2016-06-09] MEDS: LEVEMIR (INSULIN DETEMIR) 1 UNITS/0.01ML SC SCH (21:00)
[2016-06-09] MEDS ORDERED: LR 1,000 ML IV SCH (21:15)
[2016-06-09] MEDS ORDERED: fentaNYL 100 MCG/2 ML INJECTION (J3010) IV PRN (21:15)
[2016-06-09] MEDS ORDERED: ONDANSETRON 4MG/2ML VIAL (J2405) IV PRN (21:15)
[2016-06-09] MEDS ORDERED: BUPIVACAINE/EPIN 0.25% 30 ML VIAL XX ONE (21:33)
[2016-06-09] MEDS: cefTRIAXone SOD 1 GM in D5W MINI-BAG PLUS 50 ML IV SCH (22:13)
[2016-06-09] MEDS: ATORVASTATIN 20 MG TAB PO SCH (22:17)
[2016-06-09] MEDS: CARVedilol 12.5 MG TAB PO SCH (22:17)
[2016-06-09] MEDS: amLODIPine 10 MG TAB PO SCH (22:18)
[2016-06-09] MEDS: DOCUSATE SODIUM 100 MG CAP PO SCH (22:18)
[2016-06-10] VITALS (10 sets, daily range): BP systolic 107–149; BP diastolic 56–73
[2016-06-10 05:50] LABS: MEAN CORPUSCULAR HEMOGLOBIN 29.9 pg (27.0-33.0); MEAN CORPUSCULAR VOLUME 90.7 fl (80.0-96.0); RED CELL DISTRIBUTION WIDTH 13.4 % (11.5-14.5); WHITE BLOOD COUNT 9.2 K/mm3 (4.0-10.0)
[2016-06-10 06:05] LABS: ALBUMIN 2.5 GM/DL (3.2-5.2); ALBUMIN/GLOBULIN RATIO 0.68 (1.00-1.93); BILIRUBIN,TOTAL 0.5 MG/DL (0.2-1.0); CALCIUM LEVEL 8.6 MG/DL (8.8-10.2); CREATININE FOR GFR 4.35 MG/DL (0.70-1.30); GLOMERULAR FILTRATION RATE 14.5 (>49); POTASSIUM SERUM 4.9 MEQ/L (3.5-5.1)
[2016-06-10 06:29] LABS: TOTAL PROTEIN 6.2 GM/DL (6.4-8.2)
[2016-06-10] MEDS: HumaLOG INSULIN (NovoLOG) PER UNIT SC SCH ×4 (06:58→21:00)
[2016-06-10] MEDS: SENNA 8.6 MG TAB (SENOKOT) PO SCH ×2 (09:57→21:15)
[2016-06-10] MEDS: DOCUSATE SODIUM 100 MG CAP PO SCH ×2 (09:57→21:14)
[2016-06-10] MEDS ORDERED: TAMSULOSIN 0.4 MG CAP PO ONE (11:30)
--- NOTE | 2016-06-10 11:53 | CR ---
DATE OF CONSULTATION: 06/09/2016 BRIEF HISTORY OF PRESENT ILLNESS: The patient is a 66-year-old male who presents with the acute onset of rectal pain starting about a week to a week and half ago. he ended up coming into the emergency room for urinary retention and ended up having a Palmer catheter placed. He was discharged from the emergency room. He had then been seen over the last week by the [facility] and felt that he was impacted and they disimpacted him because of constipation issues. He ended up going to [facility] and ended up getting disimpacted in the emergency room under sedation. This was for severe pain, perirectal pain. The patient had not had any nausea nor vomiting. He has had this crampy abdominal pain, but rectal spasm was his major complaint. He has had some obstipated type stools with some diarrhea type stools. He came to the emergency room for some ongoing constipation issues with obvious stool on his x-rays; however, not significantly obstructed from my standpoint and not significantly dilated, nor the stool within this area was not significantly voluminous. He has since being seen in the emergency room ended up having more pain, without any fevers. He has had some bowel movements that have been significantly bloody down in the emergency room multiple times, every 10-15 minutes. He has been having rectal spasm and then pain. This is how he presents to me up in his room where the nurses are holding pressure against his perianal area with significant bleeding up around a washcloth in place. The patient is somewhat pale, pasty appearing and has obvious bleeding issues. I did perform a colonoscopy on him several years ago without any significant abnormalities appreciated on his colonoscopy. He has not complained of any significant history of hemorrhoidal problems. PAST MEDICAL HISTORY: Significant for history of chronic kidney disease, history of coronary artery disease, history of cardiac stenting, history of hyperlipidemia, history of hypertension, history of insulin-dependent diabetes mellitus, history of cardiac stents, right hip surgery, fistula placement left arm. PHYSICAL EXAM: Reveals a pale appearing, 66-year-old male who looks uncomfortable. HEENT is unremarkable. Lungs are clear anteriorly. Heart is regular with multiple irregular beats. Abdomen is soft, nondistended, nontender. His perianal area appears normal, but he has bright red blood coming out of his rectum when I pull back his buttock cheeks and a significant amount of large red clots. IMPRESSION AND PLAN: The patient has evidence of bright red blood per rectum and probable active bleeding at this time. The question is whether he has some sort of fissure that is the deeper causing arterial bleeding at this point, whether his hemorrhoids are significantly bleeding, or whether there is an ulcer associated with this impacted stool higher up in the rectum. At this point, my recommendation is proceed to the operating room and perform a rigid sigmoidoscope for initial evaluation and hopefully clean him out a little bit more and proceed with repair of bleeding ulcer/ligation of bleeding ulcer if that is the case, ligation of a thrombosed hemorrhoid or bleeding hemorrhoid if that is the case. I anticipate this is mostly coming from the rectum and less likely more proximal. If necessary, we may need to pack this area, or I have ordered a balloon that is used with the barium enemas that we could possibly use for tamponade should this be an active bleeding. He understands our current plan and would like to proceed with this as soon as possible.
--- NOTE | 2016-06-10 12:06 | REP ---
Chest x-ray: Two views. History: Fibrosis. Comparison chest x-ray is from June 09, 2016. Findings: There is bilateral perihilar linear scarring. No mass lesion is seen. No definite infiltrate noted. Pleural angles are sharp. Heart is not enlarged. The aorta is slightly tortuous. Impression: Left and right perihilar linear fibrosis or scarring. No definite infiltrate. No mass lesions seen. Signed by Jakub Larson MD 06/10/2016 02:05 P
--- NOTE | 2016-06-10 12:07 | REP ---
KUB: Single view. History: Constipation. Findings: The right hip is replaced. There is air and stool in a nondistended colon. A few loops of air-filled but nondilated small bowel are noted scattered in the abdomen. Some vascular calcification is seen. Impression: No evidence of fecal impaction or constipation radiographically. Signed by Jakub Larson MD 06/10/2016 02:05 P
--- NOTE | 2016-06-10 12:10 | RO ---
DATE OF PROCEDURE: 06/09/2016 PREOPERATIVE DIAGNOSIS: Rectal bleeding. POSTOPERATIVE DIAGNOSIS: Rectal bleeding secondary to gangrenous hemorrhoidal tissue/pressure necrosis of perianal tissue. PROCEDURE PERFORMED: Rigid sigmoidoscopy with oversewing of hemorrhoidal bleeding/bleeding ulcer. SURGEON: Dr. Cory Ibrahim ANESTHESIA: Exparel and local Marcaine with epinephrine. General endotracheal anesthesia. ESTIMATED BLOOD LOSS: Minimal. FLUIDS: Crystalloid. BRIEF PROCEDURE SUMMARY: The patient was brought to the operating room and was put in a jackknife position after intubation was performed. He was prepped and draped in the usual sterile fashion. The patient had blood clots coming out of his anus and this was irrigated out with peroxide as well as saline irrigation. Then, a rigid sigmoidoscope was inserted to irrigate this out further and to evacuate any more blood proximally. Once this was in place, then I was able to advance this up past 10-15 cm and there was no blood up in this area proximal. Slowly coming back, there was some edematous and inflamed tissue at about 7-8 cm, but bringing the rigid sigmoidoscope out, there was significant gangrenous changes to the perianal/hemorrhoidal area. Thus, this was viewed further with hemorrhoid retractors in the following manner. The hemorrhoid retractors were used to expose circumferentially and almost circumferentially there was gangrenous mucosa. The underlying tissues seemed to be healthy, but bled easily. This area was copiously irrigated. There was one area where there seemed to be a little bit deeper necrosis that was oozing and this was suture ligated with #4-0 chromic. Otherwise, this tissue itself was present almost up to the anal verge, but more proximally this extended for at least 3-5 cm and no active bleeding was appreciated. However, with the inflamed tissue and with his current Plavix and aspirin use, I put some Gelfoam in this area to provide additional hemostasis should this be necessary, and also to be somewhat of a packing. In any case, the patient was extubated and brought to the recovery room hemodynamically stable. Sponge and needle count was correct times two.
[2016-06-10] MEDS: LEVEMIR (INSULIN DETEMIR) 1 UNITS/0.01ML SC SCH (21:00)
[2016-06-10] MEDS: ATORVASTATIN 20 MG TAB PO SCH (21:14)
[2016-06-10] MEDS: CARVedilol 12.5 MG TAB PO SCH (21:16)
[2016-06-10] MEDS: amLODIPine 10 MG TAB PO SCH (21:16)
[2016-06-10] MEDS: cefTRIAXone SOD 1 GM in D5W MINI-BAG PLUS 50 ML IV SCH (21:17)
[2016-06-11 05:30] VITALS: BP 149/73
[2016-06-11 07:11] LABS: MEAN CORPUSCULAR HEMOGLOBIN 30.9 pg (27.0-33.0); MEAN CORPUSCULAR VOLUME 90.7 fl (80.0-96.0); RED CELL DISTRIBUTION WIDTH 13.5 % (11.5-14.5); WHITE BLOOD COUNT 6.7 K/mm3 (4.0-10.0)
[2016-06-11 07:26] LABS: ALBUMIN 2.4 GM/DL (3.2-5.2); ALBUMIN/GLOBULIN RATIO 0.67 (1.00-1.93); BILIRUBIN,TOTAL 0.3 MG/DL (0.2-1.0); CALCIUM LEVEL 8.4 MG/DL (8.8-10.2); CREATININE FOR GFR 4.76 MG/DL (0.70-1.30); GLOMERULAR FILTRATION RATE 13.1 (>49); POTASSIUM SERUM 4.3 MEQ/L (3.5-5.1)
[2016-06-11] MEDS: HumaLOG INSULIN (NovoLOG) PER UNIT SC SCH ×4 (07:30→21:00)
[2016-06-11] MEDS: SENNA 8.6 MG TAB (SENOKOT) PO SCH ×2 (08:10→21:24)
[2016-06-11] MEDS: TAMSULOSIN 0.4 MG CAP PO SCH (08:11)
[2016-06-11] MEDS: DOCUSATE SODIUM 100 MG CAP PO SCH ×2 (08:11→21:25)
[2016-06-11] MEDS: PREPARATION H SUPP (HEMORRHOID) PR SCH ×2 (10:50→23:01)
[2016-06-11 14:00] VITALS: BP 126/58
[2016-06-11 21:00] VITALS: BP 161/72
[2016-06-11] MEDS: LEVEMIR (INSULIN DETEMIR) 1 UNITS/0.01ML SC SCH (21:00)
[2016-06-11] MEDS: amLODIPine 10 MG TAB PO SCH (21:25)
[2016-06-11] MEDS: cefTRIAXone SOD 1 GM in D5W MINI-BAG PLUS 50 ML IV SCH (21:26)
[2016-06-11] MEDS: CARVedilol 12.5 MG TAB PO SCH (21:26)
[2016-06-11] MEDS: ATORVASTATIN 20 MG TAB PO SCH (21:26)
[2016-06-11] MEDS: MORPHINE 2 MG/ML 1ML SYRINGE IV PRN (22:59)
--- NOTE | 2016-06-12 04:42 | IPN ---
DATE OF SERVICE: 06/10/2016 Mr. El is feeling much better today. He says he has no abdominal pain. Much more comfortable. Has been tolerating a clear diet for breakfast. No chest pain. No shortness of breath. Says he is much better than yesterday. Temperature 96.5, pulse 68, respiratory rate 18, blood pressure 123/64, 94% on room air. Intake and output (I and O) notable for a positive fluid balance of 760. Weight is 88.4 kg. He is awake, appropriately interactive, pleasantly conversant. Breathing is symmetrical and rested. Heart is in a regular rate and rhythm. Abdomen soft, doughy, nontender. White cell count 9.2, hemoglobin 10.4, platelets of 217. He did receive two units of packed red blood cells. Sodium is 140, BUN 71, creatinine 4.35. Carbon dioxide today is 19. Abdominal x-ray shows no further evidence of constipation. My assessment is as follows: This is a 66-year-old with thrombosed and necrotic hemorrhoids status post acute blood loss anemia and transfusion. Plan is as follows: 1. Patient has obstipation. No longer constipated. This led to necrosed hemorrhoids and bleeding, which was quite impressive apparently. I did discuss this case in person with Dr. Ibrahim. Continue with his bowel care guidance, as well as diet. 2. Patient has chronic kidney disease stage IV and is luckily at baseline. 3. Patient has coronary artery disease status post stenting. 4. Patient has hypertension. Holding his diuretics. 5. Patient has insulin-dependent diabetes. 6. Patient has hyperlipidemia. 7. Deep venous thrombosis (DVT) prophylaxis is sequential compression devices (SCDs) and thromboembolism deterrents (TEDs).
[2016-06-12 06:00] VITALS: BP 151/74
[2016-06-12] MEDS: MORPHINE 2 MG/ML 1ML SYRINGE IV PRN ×3 (07:15→23:20)
[2016-06-12 07:26] LABS: MEAN CORPUSCULAR HEMOGLOBIN 31.1 pg (27.0-33.0); MEAN CORPUSCULAR HGB CONC 35.1 g/dl (32.0-36.5); MEAN CORPUSCULAR VOLUME 88.6 fl (80.0-96.0); RED CELL DISTRIBUTION WIDTH 13.2 % (11.5-14.5); WHITE BLOOD COUNT 8.2 K/mm3 (4.0-10.0)
[2016-06-12 07:50] LABS: ALBUMIN 2.6 GM/DL (3.2-5.2); ALBUMIN/GLOBULIN RATIO 0.67 (1.00-1.93); BILIRUBIN,TOTAL 0.3 MG/DL (0.2-1.0); CALCIUM LEVEL 8.3 MG/DL (8.8-10.2); CREATININE FOR GFR 4.25 MG/DL (0.70-1.30); GLOMERULAR FILTRATION RATE 14.9 (>49); POTASSIUM SERUM 4.4 MEQ/L (3.5-5.1); TOTAL PROTEIN 6.5 GM/DL (6.4-8.2)
[2016-06-12] MEDS: HumaLOG INSULIN (NovoLOG) PER UNIT SC SCH ×4 (08:15→21:42)
--- NOTE | 2016-06-12 10:06 | IPN ---
DATE: 06/11/2016 Mr. El is feeling well today. He is passing flatus. No bowel movements. Is planning on doing some sitz baths later today. Is tolerating diet. Temperature 97.4 pulse 71, respiratory rate 18, blood pressure 149/73, 95% on room air. Intake and output notable for a positive fluid balance of 5.25. No bowel movements. He is awake, appropriately interactive, pleasantly conversant. Breathing is symmetrical and rested. Heart is in a regular rate and rhythm. Abdomen is soft, doughy, nontender. White cell count 6.7, hemoglobin 9.6, platelets of 204. BUN 17, creatinine 4.76. My assessment is as follows: This is a 66-year-old who presented with obstipation and was found to have necrosed hemorrhoids. Has been seen by Dr. Ibrahim. Plan is as follows: 1. Gastrointestinal (GI). Patient continues with diet orders per Dr. Ibrahim. Continue with care for his necrosed hemorrhoids. Discussed this case with Dr. Ibrahim in person today. Patient will need to have a bowel movement before he can be successfully discharged. 2. Patient has chronic kidney disease, stage IV. Is probably likely close to his baseline. Will continue to monitor daily labs. 3. Patient has coronary artery disease and stents. Continue with his home medications. 4. Patient has hypertension. We are holding his torsemide. 5. Patient has insulin-dependent diabetes. Fingersticks are well controlled for the current setting. 6. Patient has appropriate deep venous thrombosis (DVT) prophylaxis in the form of sequential compressive devices (SCDs) and thromboembolism deterrents (TEDs). 7. Patient has urinary retention. Is on Flomax.
[2016-06-12] MEDS ORDERED: PERCOCET 5MG/325MG TAB PO PRN (10:30)
[2016-06-12] MEDS: SENNA 8.6 MG TAB (SENOKOT) PO SCH ×2 (10:51→21:37)
[2016-06-12] MEDS: PREPARATION H SUPP (HEMORRHOID) PR SCH ×2 (10:51→21:39)
[2016-06-12] MEDS: TAMSULOSIN 0.4 MG CAP PO SCH (10:51)
[2016-06-12] MEDS: DOCUSATE SODIUM 100 MG CAP PO SCH ×2 (10:51→21:37)
[2016-06-12] MEDS: PERCOCET 5MG/325MG TAB PO PRN ×2 (10:53→15:17)
[2016-06-12 14:00] VITALS: BP 160/65
--- NOTE | 2016-06-12 14:26 | IPNPDOC ---
Date of Service/Time Jun 09, 2016 at 12:14 Progress Note Hospitalist Progress Note Subjective: Mr. El is somewhat irritated this morning by the fact that he had a delay in the administration of his pain medication last night, otherwise he has no focal complaints at this time. He has been passing flatus, however he has not had a formed bowel movement yet. He does apparently have some liquid per rectum , but he is unsure as to whether this is bleeding or seepage from the wound versus fecal material. He has been tolerating his sitz bath reasonably well. He does have some pain, however it appears to be under control at this time now. Objective: General: Awake, alert, in no acute distress at this time. He is accompanied in the room by his . HEENT: Head normocephalic, atraumatic, sclera are nonicteric. Hearing is grossly intact to conversation. Respiratory: Clear to auscultation bilaterally with no wheezes, rales, or rhonchi. Cardiovascular: Regular rate and rhythm, with no rubs, gallops, or murmur. Abdomen: Soft, nontender, nondistended, no hepatosplenomegaly appreciated. Bowel sounds present. Extremities: 2+ pulses in the radial and dorsalis pedis bilaterally. No evidence of clubbing or cyanosis. Assessment/Plan: 1. Rectal pain status post rigid sigmoidoscopy with oversewing of hemorrhoidal bleeding/bleeding ulcer. The patient continues to have very little appetite, and is only eating broth. We will advance his diet as tolerated, and the plan is that he will need to have rectal continence and a bowel movement before he can be discharged 2. Chronic kidney disease, stage IV. He most likely is at his baseline 3. Coronary artery disease and stents. Restart aspirin and plavix in two weeks. 4. Hypertension. Mildly elevated today, we will continue to hold his home torsemide at this time 5. Insulin-dependent diabetes mellitus type 2. Glucose is reasonably well controlled for the inpatient setting 6. Urinary retention. Continue with Flomax 7. DVT prophylaxis with TEDs and sequentials I have both independently examined this patient as well as reviewed documentation. I have discussed the findings in detail with the author the findings and plan of treatment as documented in the note. I will continue to follow the patient and offer further guidance to the patients care as necessary VS, I&O, 24H, Fishbone VS, I&O, 24H, Fishbone Vital Signs Date Time Temp Pulse Resp B/P Pulse Ox O2 Delivery O2 Flow Rate FiO2 06/12/16 13:45 16 06/12/16 06:00 97.5 77 151/74 96 Room Air 06/09/16 21:10 2 I&O- Last 24 Hours up to 6 AM 06/12/16 06:00 Intake Total 1920 ml Output Total 2550 ml Balance -630 ml Laboratory Tests 2 06/11/16 16:27: Bedside Glucose (Misc Panel) 138H 06/11/16 21:06: Bedside Glucose (Misc Panel) 137H 06/12/16 07:16: Blood Urea Nitrogen 60H, Creatinine 4.25H, Sodium Level 144, Potassium Level 4.4 , Chloride Level 112H, Carbon Dioxide Level 19L, Calcium Level 8.3L, Aspartate Amino Transf (AST/SGOT) 23, Alanine Aminotransferase (ALT/SGPT) 31, Alkaline Phosphatase 64, Total Bilirubin 0.3, Total Protein 6.5, Albumin 2.6L, Albumin/ Globulin Ratio 0.67L, Anion Gap 13, Glomerular Filtration Rate 14.9L 06/12/16 10:46: Bedside Glucose (Misc Panel) 80 06/12/16 12:06: Bedside Glucose (Misc Panel) 121H Laboratory Tests 06/12/16 07:16 Calcium Level 8.3 L, Aspartate Amino Transf (AST/SGOT) 23, Alanine Aminotransferase (ALT/SGPT) 31, Alkaline Phosphatase 64, Total Bilirubin 0.3, Total Protein 6.5, Albumin 2.6 L, Red Blood Count 3.03 L, Mean Corpuscular Volume 88.6, Mean Corpuscular Hemoglobin 31.1, Mean Corpuscular Hemoglobin Concent 35.1, Red Cell Distribution Width 13.2 Microbiology 06/09/16 MRSA Screen - Final, Complete 06/10/16 Urine Culture - Final, Complete Enterococcus Faecalis BENJAMIN CAMACHO DO Jun 12, 2016 14:26 STUART PARK MD Jun 12, 2016 20:31
[2016-06-12] MEDS: ATORVASTATIN 20 MG TAB PO SCH (21:36)
[2016-06-12] MEDS: amLODIPine 10 MG TAB PO SCH (21:37)
[2016-06-12] MEDS: CARVedilol 12.5 MG TAB PO SCH (21:38)
[2016-06-12] MEDS: LEVEMIR (INSULIN DETEMIR) 1 UNITS/0.01ML SC SCH (21:38)
[2016-06-12] MEDS: cefTRIAXone SOD 1 GM in D5W MINI-BAG PLUS 50 ML IV SCH (21:38)
[2016-06-13] MEDS: PERCOCET 5MG/325MG TAB PO PRN ×2 (02:23→06:49)
[2016-06-13] MEDS: ONDANSETRON 4MG/2ML VIAL (J2405) IV PRN ×3 (03:10→21:44)
[2016-06-13 06:00] VITALS: BP 142/86
[2016-06-13 06:49] LABS: MEAN CORPUSCULAR HGB CONC 34.1 g/dl (32.0-36.5); MEAN CORPUSCULAR VOLUME 90.9 fl (80.0-96.0); RED CELL DISTRIBUTION WIDTH 13.3 % (11.5-14.5); WHITE BLOOD COUNT 7.8 K/mm3 (4.0-10.0)
[2016-06-13 07:16] LABS: ALBUMIN 2.6 GM/DL (3.2-5.2); ALBUMIN/GLOBULIN RATIO 0.65 (1.00-1.93); BILIRUBIN,TOTAL 0.2 MG/DL (0.2-1.0); CALCIUM LEVEL 8.4 MG/DL (8.8-10.2); CREATININE FOR GFR 4.15 MG/DL (0.70-1.30); GLOMERULAR FILTRATION RATE 15.4 (>49); POTASSIUM SERUM 4.7 MEQ/L (3.5-5.1); TOTAL PROTEIN 6.6 GM/DL (6.4-8.2)
[2016-06-13] MEDS: HumaLOG INSULIN (NovoLOG) PER UNIT SC SCH ×4 (07:37→20:55)
[2016-06-13] MEDS ORDERED: TORSEMIDE 5MG TABLET PO ONE (08:00)
[2016-06-13] MEDS: TAMSULOSIN 0.4 MG CAP PO SCH (09:31)
[2016-06-13] MEDS: PREPARATION H SUPP (HEMORRHOID) PR SCH ×2 (09:31→21:43)
[2016-06-13] MEDS: DOCUSATE SODIUM 100 MG CAP PO SCH ×2 (09:32→21:44)
[2016-06-13] MEDS: SENNA 8.6 MG TAB (SENOKOT) PO SCH ×2 (09:32→21:44)
--- NOTE | 2016-06-13 09:37 | EDDOCDS ---
Physician Documentation [facility] Name: Rod El Age: 66 yrs Sex: Male : 1950 Arrival Date: 06/09/2016 Time: 12:14 Bed 9 Private MD: Tosha Mota A.N.P. Disposition: 06/09 15:08 Critical Care: Critical care not applicable. pc Disposition: 06/09/16 15:10 Hospitalization ordered by Jamar Ricardo for Inpatient Admission. Preliminary diagnosis are Fecal impaction, Constipation, Chronic kidney disease, stage 4 (severe). - Bed requested for 4 [place]. - Status is Inpatient Admission. jjr - Condition is Stable. - Problem is an ongoing problem. - Symptoms are unchanged. HPI: 13:46 This 66 yrs old Male presents to ER via Walkin/Carried/Asstd with complaints pc of Rectal Pain. 13:46 The history is obtained from the patient, the patient's family/friend. He has had pc severe constipation, with secondary urinary retention, over the past 10-14 days. He has been seen at twice, with labs and CTs and manual disimpaction, then transferred to [facility], where he underwent procedural sedation due to extreme rectal pain, and another disimpaction. He has been only passing liquid since, with firm "small rocks". He denies any rectal bleeding. He has severe rectal pain. 13:51 At their worst, the symptoms were a 10 out of 10. In the emergency department, the pc symptoms are a 10 out of 10. The patient has not experienced similar symptoms in the past. The patient has been recently seen by a urologist. Historical: - Allergies: no known allergies; - Home Meds: 1. clopidogrel 75 mg oral tab 1 tab once daily (Last dose: 06/08/2016 20:00) 2. amlodipine 10 mg Oral tab 1 tab once daily (Last dose: 06/08/2016 07:00) 3. torsemide 10 mg oral tab 1 tab once daily (Last dose: 06/08/2016 07:00) 4. atorvastatin 60mg oral tab 1 tab once daily (Last dose: 06/08/2016 20:00) 5. carvedilol 12.5 mg oral tab 1 tab 2 times per day (Last dose: 06/08/2016 20:00) 6. Lantus 100 unit/mL Sub-Q soln (Last dose: 06/08/2016 20:00) 7. Novolog 100 unit/mL Sub-Q soln (Last dose: 06/09/2016 07:00) - PMHx: Stage 4 kidney disease; CAD; Hypertension; Hypercholesterolemia; Diabetes - IDDM: controlled; - PSHx: cardiac stents; right hip replacement; fistula placement; - The history from nurses notes was reviewed: and I agree with what is documented. - Social history: Smoking status: Patient states was never smoker of tobacco. No barriers to communication noted, Speaks appropriately for age. - : The pt / caregiver states he / she is not on anticoagulants. Home medication list is obtained from the patient. - Hospitalizations: : No recent hospitalization is reported. - Exposure Risk Screening:: None identified. - Immunization history:: All immunizations up-to-date. - Family history: Not pertinent. - Social history:: the patient is a non-smoker, the patient does not drink alcohol. ROS: 13:56 All systems are negative except as listed. pc Exam: 13:56 General Appearance: alert, the patient is in moderate distress. pc 13:56 EENT: normal eye inspection, ears, nose and throat normal, pharynx normal, mucous membranes moist 13:56 Neck: The exam reveals no acute abnormalities. ROM is normal and painless. No nuchal rigidity is noted.. 13:56 Respiratory: no respiratory distress, normal breath sounds, chest non-tender. 13:56 CVS: regular pulse rate, regular rhythm, normal S1 and S2, no murmurs, strong peripheral pulses, normal capillary refill. 13:56 Abdomen: soft, non-tender, no organomegaly, normal bowel sounds, Rectal exam: tone is normal, stool is tripathi, hard, tenderness is palpated, fecal impaction is noted. 13:56 Back: normal inspection. 13:56 Skin: skin color is normal, warm, dry. 13:56 Extremities: The extremities have a grossly normal appearance, are non-tender, without acute ROM abnormalities. 13:56 Neuro: oriented x 3, cranial nerves normal as tested, no motor deficits, no sensory deficits. 13:56 Psych: normal mood. 13:56 : bladder is non-distended, non-tender, Palmer in place, Urine is clear. pc Vital Signs: 12:16 BP 126 / 70; Pulse 72; Resp 16; Temp 97.8; Pulse Ox 99% on R/A; Weight 88 kg / 194.01 sew lbs; Height 5 ft. 7 in. (170.18 cm); Pain 10/10; 14:00 BP 139 / 72; Pulse 67; Resp 18; Pulse Ox 96% on R/A; Pain 1/10; jjr 16:44 BP 136 / 72; Pulse 69; Resp 18; Temp 98(O); Pulse Ox 94% on R/A; Pain 7/10; jjr 17:51 BP 108 / 59; Pulse 68; Resp 18; Pulse Ox 92% on R/A; jjr 18:04 BP 138 / 61 (auto/); Pulse 76; Resp 20; Pulse Ox 92% on R/A; Pain 7/10; jjr 12:16 Body Mass Index 30.38 (88.00 kg, 170.18 cm) sew MDM: 13:06 IV Saline Lock ordered. pc 13:06 Ondansetron 4 mg IVP once ordered. pc 13:06 morphine 4 mg IVP once ordered. pc 13:08 CBC with Diff Ordered. EDMS 13:08 MED Profile Ordered. EDMS 13:08 Liver Profile Ordered. EDMS 13:08 A1C Ordered. EDMS 13:08 Abdomen, Flat\\E\\Upright,PA Chest Ordered. EDMS 13:57 Differential Diagnosis: fecal impaction with rectal pain; urinary retention; CKD. Plan: pc labs, imaging, meds. 13:59 Financial registration complete. lg 14:18 [facility] [place] [facility] Payment Agreement was scanned into [employer] and attached to record. lg 14:45 CBC with Diff Reviewed. pc 14:45 MED Profile Reviewed. pc 14:45 Liver Profile Reviewed. pc 14:45 Abdomen, Flat\\E\\Upright,PA Chest Reviewed. pc 14:57 A1C Reviewed. pc 15:08 Data reviewed: old medical records, vital signs, nurses notes, lab test results, all pc radiology studies and available results. Test interpretation: LAB - all labs as ordered have been reviewed, interpreted and considered in the overall management of the clinical presentation; X-RAY - interpreted by Radiologist and personally reviewed, 3-view abdomen series; constipation. The patient has been re-examined and re-evaluated. The patient's symptoms have mildly improved after treatment. Physician consultation: Dr. Jamar Ricardo DO was contacted at 15:09, regarding admission. Disposition: The historical points, examination findings, and any diagnostic results supporting the provided diagnosis, were discussed with the patient or legal guardian. The need for further work-up and/or treatment in the hospital was explained. 15:10 BED REQUEST+ADM ordered. EDMS 15:43 Admission / Observation Status ordered. EDMS 15:47 CLEAR LIQUIDS DIET ordered. EDMS 17:28 morphine 4 mg IVP once ordered. jjr Administered Medications: 13:22 Drug: Ondansetron 4 mg [ondansetron HCl 2 mg/mL intravenous solution (2 mL)] Route: jjr IVP; Site: right antecubital; 13:22 Drug: morphine 4 mg [morphine 4 mg/mL intravenous cartridge (1 mL)] Route: IVP; Site: jjr right antecubital; 14:00 Follow up: BP 139 / 72; Pulse 67 bpm; Resp 18 bpm; Pulse Ox 96% RA; Pain 06/13 Adult jjr 17:30 Drug: morphine 4 mg [morphine 4 mg/mL intravenous cartridge (1 mL)] Route: IVP; Site: jjr right antecubital; Signatures: Dispatcher [employer] EDEleuterio Shannon MD MD pc Daly, Linda, [employer] [facility] Karina Mei, Yosef Navas lg Betina Johnson, RN RN jCasey Gordon, RN RN [id number] The chart was reviewed and I authenticate all verbal orders and agree with the evaluation and treatment provided.Corrections: (The following items were deleted from the chart) 13:52 13:46 He has had severe constipation, with secondary urinary retention, over the past pc 10-14 days. He has been seen at twice, with labs and CTs and manual disimpaction, then transferred to [facility], where he underwent procedural sedation due to extreme rectal pain, and another disimpaction. He has been only passing liquid since, 13:55 13:51 The patient has been recently seen by [facility]: 14:18 [facility] Payment Agreement lg Chart Complete MTDD
--- NOTE | 2016-06-13 09:37 | EDDOCDS ---
Nurse's Notes [facility] Name: Rod El Age: 66 yrs Sex: Male : 1950 Arrival Date: 06/09/2016 Time: 12:14 Bed 9 Private MD: Tosha Mota A.N.P. Diagnosis: Fecal impaction;Constipation;Chronic kidney disease, stage 4 (severe) Presentation: 06/09 12:23 Presenting complaint: Patient states: states that he has been having trouble with ml6 urinary retention and constipation, Family demanding that he sees a industrial illuminating engineer and that he be admitted. Adult Sepsis Screening: The patient does not have new or worsening altered mentation. Patient's respiratory rate is less than 22. Systolic blood pressure is greater than 100. Patient has a qSOFA score of 0- Negative Sepsis Screen. Suicide/Homicide risk assessment- the patient denies having any suicidal and/or homicidal ideations and does not present with any other emotional, behavioral or mental health complaints. Status: Patient is not a park services specialist or dependent. Transition of care: patient was not received from another setting of care. 12:23 Acuity: JOSEF Level 3 ml6 12:23 Method Of Arrival: Walkin/Carried/Asstd ml6 Triage Assessment: 12:32 General: Appears in no apparent distress, Behavior is anxious, cooperative. Pain: ml6 Location: abdomen. The patient is triaged at the bedside. See Assessment in Nurses Notes section of ED record. The patient is triaged at the bedside. See Assessment in Nurses Notes section of ED record. Cardiovascular: No deficits noted. Respiratory: No deficits noted. GI: Abdomen is distended, Bowel sounds present X 4 quads. Abd is tender to palpation X 4 quads. Historical: - Allergies: no known allergies; - Home Meds: 1. clopidogrel 75 mg oral tab 1 tab once daily (Last dose: 06/08/2016 20:00) 2. amlodipine 10 mg Oral tab 1 tab once daily (Last dose: 06/08/2016 07:00) 3. torsemide 10 mg oral tab 1 tab once daily (Last dose: 06/08/2016 07:00) 4. atorvastatin 60mg oral tab 1 tab once daily (Last dose: 06/08/2016 20:00) 5. carvedilol 12.5 mg oral tab 1 tab 2 times per day (Last dose: 06/08/2016 20:00) 6. Lantus 100 unit/mL Sub-Q soln (Last dose: 06/08/2016 20:00) 7. Novolog 100 unit/mL Sub-Q soln (Last dose: 06/09/2016 07:00) - PMHx: Stage 4 kidney disease; CAD; Hypertension; Hypercholesterolemia; Diabetes - IDDM: controlled; - PSHx: cardiac stents; right hip replacement; fistula placement; - The history from nurses notes was reviewed: and I agree with what is documented. - Social history: Smoking status: Patient states was never smoker of tobacco. No barriers to communication noted, Speaks appropriately for age. - : The pt / caregiver states he / she is not on anticoagulants. Home medication list is obtained from the patient. - Hospitalizations: : No recent hospitalization is reported. - Exposure Risk Screening:: None identified. - Immunization history:: All immunizations up-to-date. - Family history: Not pertinent. - Social history:: the patient is a non-smoker, the patient does not drink alcohol. Screenin:44 Fall Risk. jjr 12:44 Screening information is obtained from the patient. Fall risk: At risk due to gait jjr disturbance, The following interventions are performed due to a positive Fall Risk Screen: added to special handling. Assistance ADL's: Requires assistance with meal preparation, this assistance is provided by family members, housework, assistance is provided by family members. Abuse/DV Screen: The patient / caregiver reports he/she is: not in a situation that causes fear, pain or injury. Nutritional screening: Had unintentional weight loss of 10 pounds or more. Advance Directives: There is no active DNR order. home support is adequate. Assessment: 12:42 General: Appears uncomfortable, well nourished, well groomed, Behavior is appropriate jjr for age. Pain: Location: gluteal cleft. Neurological: No deficits noted. Respiratory: Airway is patent Respiratory effort is even, unlabored, Respiratory pattern is regular. GI: Abdomen is non- distended Bowel sounds present X 4 quads. Abd is soft and non tender X 4 quads. Reports constipation, decreased appetite. : Palmer in place to gravity drainage. Derm: Skin is pink, warm & dry. 14:01 General: Appears in no apparent distress, rectal pain 1/10 denies needs at this time. jjr 14:55 General: Appears in no apparent distress, Behavior is appropriate for age. General: jjr denies needs at this time, family at bedside. Neurological: No deficits noted. Respiratory: No deficits noted. Derm: No deficits noted. 15:54 General: Appears in no apparent distress, diet gingerale provided, pt reports jjr increasing pain to rectal area. 16:44 General: Appears in no apparent distress, reports constant "contraction like" pain to jjr rectum. 17:51 General: Appears uncomfortable, Behavior is appropriate for age, pt passed clots and jjr now has steady ooze of red fluid from rectum, medicated per order. 18:07 General: pt remains uncomfortable reports slight pain relief but still with spikes of jjr 10/10, Dr Ricardo aware of last bowel movement and need for pain control orders. Vital Signs: 12:16 BP 126 / 70; Pulse 72; Resp 16; Temp 97.8; Pulse Ox 99% on R/A; Weight 88 kg; Height 5 sew ft. 7 in. (170.18 cm); Pain 10/10; 14:00 BP 139 / 72; Pulse 67; Resp 18; Pulse Ox 96% on R/A; Pain 1/10; jjr 16:44 BP 136 / 72; Pulse 69; Resp 18; Temp 98(O); Pulse Ox 94% on R/A; Pain 7/10; jjr 17:51 BP 108 / 59; Pulse 68; Resp 18; Pulse Ox 92% on R/A; jjr 18:04 BP 138 / 61 (auto/); Pulse 76; Resp 20; Pulse Ox 92% on R/A; Pain 7/10; jjr 12:16 Body Mass Index 30.38 (88.00 kg, 170.18 cm) [facility] Vitals: 12:16 Log In Time: June 09, 2016 at 12:16. [facility] ED Course: 12:16 Patient visited by Sahra Salazar. sew 12:16 Tosha Mota is Private Physician. sew 12:16 Patient moved to Waiting sew 12:17 Patient visited by Sahra Salazar. sew 12:17 Patient moved to Pre RCE sew 12:27 Triage Initiated ml6 12:32 Betina Johnson, RN is Primary Nurse. ml6 12:32 Patient moved to 9 ml6 12:43 The patient / caregiver is instructed regarding the plan of care and ED course. jjr 12:44 Patient visited by Betina oJhnson RN. jjr 12:47 Eleuterio Portillo MD is Attending Physician. pc 13:05 Patient visited by Eleuterio Portillo MD. pc 13:14 A1C Sent. jjr 13:14 Liver Profile Sent. jjr 13:14 MED Profile Sent. jjr 13:14 CBC with Diff Sent. jjr 14:01 Patient visited by Betina Johnson RN. jjr 14:01 Inserted saline lock: 20 gauge in right antecubital area and blood collected. Labs jjr drawn. (by ED staff). Sent per order to lab. 14:17 Patient name changed from Rod\\S\\A\\S\\Bourcy Ii\\S\\ to Rod\\S\\A\\S\\Bourcy. EDMS 14:18 [facility] Payment Agreement was scanned into [employer] by [employer] and attached to record. lg 14:45 Abdomen, Flat\\E\\Upright,PA Chest Returned. EDMS 14:56 Patient visited by Betina Johnson RN. jjr 15:10 Jamar Ricardo DO is Hospitalizing Provider. pc 15:54 Patient visited by Betina Johnson RN. jjr Administered Medications: 13:22 Drug: Ondansetron 4 mg [ondansetron HCl 2 mg/mL intravenous solution (2 mL)] Route: jjr IVP; Site: right antecubital; 13:22 Drug: morphine 4 mg [morphine 4 mg/mL intravenous cartridge (1 mL)] Route: IVP; Site: jjr right antecubital; 14:00 Follow up: BP 139 / 72; Pulse 67 bpm; Resp 18 bpm; Pulse Ox 96% RA; Pain 06/13 Adult jjr 17:30 Drug: morphine 4 mg [morphine 4 mg/mL intravenous cartridge (1 mL)] Route: IVP; Site: jjr right antecubital; Order Results: Lab Order: CBC with Diff; SPEC'M 06/09/16 13:12 Test: WHITE BLOOD COUNT; Value: 8.4; Range: 4.0-10.0; Units: K/mm3; Status: F Test: RED BLOOD COUNT; Value: 3.73; Range: 4.30-6.10; Abnormal: Below low normal; Units: M/mm3; Status: F Test: HEMOGLOBIN; Value: 11.2; Range: 14.0-18.0; Abnormal: Below low normal; Units: g/dl; Status: F Test: HEMATOCRIT; Value: 33.4; Range: 42.0-52.0; Abnormal: Below low normal; Units: %; Status: F Test: MEAN CORPUSCULAR VOLUME; Value: 89.7; Range: 80.0-96.0; Units: fl; Status: F Test: MEAN CORPUSCULAR HEMOGLOBIN; Value: 30.1; Range: 27.0-33.0; Units: pg; Status: F Test: MEAN CORPUSCULAR HGB CONC; Value: 33.5; Range: 32.0-36.5; Units: g/dl; Status: F Test: RED CELL DISTRIBUTION WIDTH; Value: 13.2; Range: 11.5-14.5; Units: %; Status: F Test: PLATELET COUNT, AUTOMATED; Value: 243; Range: 150-450; Units: k/mm3; Status: F Test: NEUTROPHILS %; Value: 78.4; Range: 36.0-66.0; Abnormal: Above high normal; Units: %; Status: F Test: LYMPH %; Value: 11.5; Range: 24.0-44.0; Abnormal: Below low normal; Units: %; Status: F Test: MONO %; Value: 5.4; Range: 0.0-5.0; Abnormal: Above high normal; Units: %; Status: F Test: EOS %; Value: 2.1; Range: 0.0-3.0; Units: %; Status: F Test: BASO %; Value: 0.4; Range: 0.0-1.0; Units: %; Status: F Test: LARGE UNSTAINED CELL %; Value: 2.3; Range: 0.0-4.0; Units: %; Status: F Test: NEUTROPHILS #; Value: 6.6; Range: 1.8-7.7; Units: K/mm3; Status: F Test: LYMPH #; Value: 1.0; Range: 1.5-4.5; Abnormal: Below low normal; Units: K/mm3; Status: F Test: MONO #; Value: 0.5; Range: 0.0-0.8; Units: K/mm3; Status: F Test: EOS #; Value: 0.2; Range: 0.0-0.50; Units: K/mm3; Status: F Test: BASO #; Value: 0.0; Range: 0.0-0.2; Units: K/mm3; Status: F Test: LARGE UNSTAINED CELL #; Value: 0.2; Range: 0.0-0.4; Units: K/mm3; Status: F Lab Order: MED Profile; SPEC'M 06/09/16 13:12 Test: GLUCOSE, FASTING; Value: 101; Range: 80-110; Units: MG/DL; Status: F Test: BLOOD UREA NITROGEN; Value: 63; Range: 7-18; Abnormal: Above high normal; Units: MG/DL; Status: F Test: CREATININE FOR GFR; Value: 4.57; Range: 0.70-1.30; Abnormal: Above high normal; Units: MG/DL; Status: F Test: GLOMERULAR FILTRATION RATE; Value: 13.7; Range: >49; Abnormal: Below low normal; Status: F Test: SODIUM LEVEL; Value: 137; Range: 136-145; Units: MEQ/L; Status: F Test: POTASSIUM SERUM; Value: 4.3; Range: 3.5-5.1; Units: MEQ/L; Status: F Test: CHLORIDE LEVEL; Value: 105; Range: 98-107; Units: MEQ/L; Status: F Test: CARBON DIOXIDE LEVEL; Value: 22; Range: 21-32; Units: MEQ/L; Status: F Test: ANION GAP; Value: 10; Range: 8-16; Units: MEQ/L; Status: F Test: CALCIUM LEVEL; Value: 8.7; Range: 8.8-10.2; Abnormal: Below low normal; Units: MG/DL; Status: F Test Note: ; Units are mL/min/1.73 m2 Chronic Kidney Disease Staging per NKF: Stage I & II GFR >=60 Normal to Mildly Decreased Stage III GFR 30-59 Moderately Decreased Stage IV GFR 15-29 Severely Decreased Stage V GFR <15 Very Little GFR Left ESRD GFR <15 on STORE MGR Lab Order: Liver Profile; [facility] 06/09/16 13:12 Test: AST/SGOT; Value: 23; Range: 15-37; Units: U/L; Status: F Test: ALT/SGPT; Value: 31; Range: 12-78; Units: U/L; Status: F Test: ALKALINE PHOSPHATASE; Value: 69; Range: 45-117; Units: U/L; Status: F Test: BILIRUBIN,TOTAL; Value: 0.5; Range: 0.2-1.0; Units: MG/DL; Status: F Test: BILIRUBIN,DIRECT; Value: 0.2; Range: 0.0-0.2; Units: MG/DL; Status: F Test: TOTAL PROTEIN; Value: 7.8; Range: 6.4-8.2; Units: GM/DL; Status: F Test: ALBUMIN; Value: 3.0; Range: 3.2-5.2; Abnormal: Below low normal; Units: GM/DL; Status: F Test: ALBUMIN/GLOBULIN RATIO; Value: 0.63; Range: 1.00-1.93; Abnormal: Below low normal; Status: F Lab Order: A1C; [facility]' 06/09/16 13:12 Test: HEMOGLOBIN A1c; Value: 6.3; Range: 4.5-6.2; Abnormal: Above high normal; Units: %; Status: F Test: ESTIMATED AVERAGE GLUCOSE; Value: 134; Range: 60-110; Abnormal: Above high normal; Units: MG/DL; Status: F Radiology Order: Abdomen, Flat\\E\\Upright,PA Chest Test: Abdomen, Flat\\E\\Upright,PA Chest REASON FOR EXAMINATION: Abdomen Pain; Abdominal series 06/09/2016; ; Indication: Abdominal pain; ; Comparison: PA and lateral chest 02/08/16 cardiac silhouette is mildly enlarged; without change. Scattered areas of interstitial fibrotic scarring are noted; bilaterally.; ; Small area of parenchymal disease within the left infrahilar location is most; compatible with interstitial scarring superimposed on rib rather than a; developing pulmonary nodule. Bones and soft tissues are within normal limits; ; Impression; 1. Interstitial /fibrotic scarring bilaterally.; 2. Ill-defined left infrahilar parenchymal density, likely scarring. Recommend; correlation with a PA and lateral chest or CT of the chest in further; characterization; ; Flat and left-side down decubitus film 06/09/2016; ; Findings: There is moderate stool as well as some residual oral contrast or; dense material from medication seen within the left colon and to a lesser extent; transverse colon. The bowel gas pattern is nonspecific. There is no evidence of; free intraperitoneal air or obstruction.; ; There has been prior right total hip arthroplasty.; ; Impression; 1. Moderate stool within the transverse and left colon. Dense material; primarily within the left colon represents previous oral contrast ingestion; and/or medication.; ; ; Signed by; Katiuska Abbott MD 06/09/2016 01:59 P; Outcome: 15:10 Decision to Hospitalize by Provider. pc 18:08 Patient left the ED. [email or web address] Signatures: Dispatcher [employer] EDMS Eleuterio Portillo MD MD pc Ganter, LoriLee, Reg Reg lg Raymond, Jessica, RN RN jjr Lowe, Matthew, RN RN ml6 Sahra Salazar Chart Complete MILENA
--- NOTE | 2016-06-13 09:37 | EDDOCDS ---
Physician Documentation [facility] Name: Rod El Age: 66 yrs Sex: Male : 1950 Arrival Date: 06/09/2016 Time: 12:14 Bed 9 Private MD: Tosha Mota A.N.P. Disposition: 06/09 15:08 Critical Care: Critical care not applicable. pc Disposition: 06/09/16 15:10 Hospitalization ordered by Jamar Ricardo for Inpatient Admission. Preliminary diagnosis are Fecal impaction, Constipation, Chronic kidney disease, stage 4 (severe). - Bed requested for 4 [place]. - Status is Inpatient Admission. jjr - Condition is Stable. - Problem is an ongoing problem. - Symptoms are unchanged. HPI: 13:46 This 66 yrs old Male presents to ER via Walkin/Carried/Asstd with complaints pc of Rectal Pain. 13:46 The history is obtained from the patient, the patient's family/friend. He has had pc severe constipation, with secondary urinary retention, over the past 10-14 days. He has been seen at twice, with labs and CTs and manual disimpaction, then transferred to [facility], where he underwent procedural sedation due to extreme rectal pain, and another disimpaction. He has been only passing liquid since, with firm "small rocks". He denies any rectal bleeding. He has severe rectal pain. 13:51 At their worst, the symptoms were a 10 out of 10. In the emergency department, the pc symptoms are a 10 out of 10. The patient has not experienced similar symptoms in the past. The patient has been recently seen by a urologist. Historical: - Allergies: no known allergies; - Home Meds: 1. clopidogrel 75 mg oral tab 1 tab once daily (Last dose: 06/08/2016 20:00) 2. amlodipine 10 mg Oral tab 1 tab once daily (Last dose: 06/08/2016 07:00) 3. torsemide 10 mg oral tab 1 tab once daily (Last dose: 06/08/2016 07:00) 4. atorvastatin 60mg oral tab 1 tab once daily (Last dose: 06/08/2016 20:00) 5. carvedilol 12.5 mg oral tab 1 tab 2 times per day (Last dose: 06/08/2016 20:00) 6. Lantus 100 unit/mL Sub-Q soln (Last dose: 06/08/2016 20:00) 7. Novolog 100 unit/mL Sub-Q soln (Last dose: 06/09/2016 07:00) - PMHx: Stage 4 kidney disease; CAD; Hypertension; Hypercholesterolemia; Diabetes - IDDM: controlled; - PSHx: cardiac stents; right hip replacement; fistula placement; - The history from nurses notes was reviewed: and I agree with what is documented. - Social history: Smoking status: Patient states was never smoker of tobacco. No barriers to communication noted, Speaks appropriately for age. - : The pt / caregiver states he / she is not on anticoagulants. Home medication list is obtained from the patient. - Hospitalizations: : No recent hospitalization is reported. - Exposure Risk Screening:: None identified. - Immunization history:: All immunizations up-to-date. - Family history: Not pertinent. - Social history:: the patient is a non-smoker, the patient does not drink alcohol. ROS: 13:56 All systems are negative except as listed. pc Exam: 13:56 General Appearance: alert, the patient is in moderate distress. pc 13:56 EENT: normal eye inspection, ears, nose and throat normal, pharynx normal, mucous membranes moist 13:56 Neck: The exam reveals no acute abnormalities. ROM is normal and painless. No nuchal rigidity is noted.. 13:56 Respiratory: no respiratory distress, normal breath sounds, chest non-tender. 13:56 CVS: regular pulse rate, regular rhythm, normal S1 and S2, no murmurs, strong peripheral pulses, normal capillary refill. 13:56 Abdomen: soft, non-tender, no organomegaly, normal bowel sounds, Rectal exam: tone is normal, stool is tripathi, hard, tenderness is palpated, fecal impaction is noted. 13:56 Back: normal inspection. 13:56 Skin: skin color is normal, warm, dry. 13:56 Extremities: The extremities have a grossly normal appearance, are non-tender, without acute ROM abnormalities. 13:56 Neuro: oriented x 3, cranial nerves normal as tested, no motor deficits, no sensory deficits. 13:56 Psych: normal mood. 13:56 : bladder is non-distended, non-tender, Palmer in place, Urine is clear. pc Vital Signs: 12:16 BP 126 / 70; Pulse 72; Resp 16; Temp 97.8; Pulse Ox 99% on R/A; Weight 88 kg / 194.01 sew lbs; Height 5 ft. 7 in. (170.18 cm); Pain 10/10; 14:00 BP 139 / 72; Pulse 67; Resp 18; Pulse Ox 96% on R/A; Pain 1/10; jjr 16:44 BP 136 / 72; Pulse 69; Resp 18; Temp 98(O); Pulse Ox 94% on R/A; Pain 7/10; jjr 17:51 BP 108 / 59; Pulse 68; Resp 18; Pulse Ox 92% on R/A; jjr 18:04 BP 138 / 61 (auto/); Pulse 76; Resp 20; Pulse Ox 92% on R/A; Pain 7/10; jjr 12:16 Body Mass Index 30.38 (88.00 kg, 170.18 cm) sew MDM: 13:06 IV Saline Lock ordered. pc 13:06 Ondansetron 4 mg IVP once ordered. pc 13:06 morphine 4 mg IVP once ordered. pc 13:08 CBC with Diff Ordered. EDMS 13:08 MED Profile Ordered. EDMS 13:08 Liver Profile Ordered. EDMS 13:08 A1C Ordered. EDMS 13:08 Abdomen, Flat\\E\\Upright,PA Chest Ordered. EDMS 13:57 Differential Diagnosis: fecal impaction with rectal pain; urinary retention; CKD. Plan: pc labs, imaging, meds. 13:59 Financial registration complete. lg 14:18 [facility] Payment Agreement was scanned into [employer] and attached to record. lg 14:45 CBC with Diff Reviewed. pc 14:45 MED Profile Reviewed. pc 14:45 Liver Profile Reviewed. pc 14:45 Abdomen, Flat\\E\\Upright,PA Chest Reviewed. pc 14:57 A1C Reviewed. pc 15:08 Data reviewed: old medical records, vital signs, nurses notes, lab test results, all pc radiology studies and available results. Test interpretation: LAB - all labs as ordered have been reviewed, interpreted and considered in the overall management of the clinical presentation; X-RAY - interpreted by Radiologist and personally reviewed, 3-view abdomen series; constipation. The patient has been re-examined and re-evaluated. The patient's symptoms have mildly improved after treatment. Physician consultation: Dr. Jamar Ricardo DO was contacted at 15:09, regarding admission. Disposition: The historical points, examination findings, and any diagnostic results supporting the provided diagnosis, were discussed with the patient or legal guardian. The need for further work-up and/or treatment in the hospital was explained. 15:10 BED REQUEST+ADM ordered. EDMS 15:43 Admission / Observation Status ordered. EDMS 15:47 CLEAR LIQUIDS DIET ordered. EDMS 17:28 morphine 4 mg IVP once ordered. jjr Administered Medications: 13:22 Drug: Ondansetron 4 mg [ondansetron HCl 2 mg/mL intravenous solution (2 mL)] Route: jjr IVP; Site: right antecubital; 13:22 Drug: morphine 4 mg [morphine 4 mg/mL intravenous cartridge (1 mL)] Route: IVP; Site: jjr right antecubital; 14:00 Follow up: BP 139 / 72; Pulse 67 bpm; Resp 18 bpm; Pulse Ox 96% RA; Pain 06/13 Adult jjr 17:30 Drug: morphine 4 mg [morphine 4 mg/mL intravenous cartridge (1 mL)] Route: IVP; Site: jjr right antecubital; Signatures: Dispatcher [employer] EDEleuterio Shannon MD MD pc Daly, Linda, Mess Attendant Unit lbd Karina Mei, Yosef Navas lg Betina Johnson, RN RN jCasey Gordon, RN RN ml6 The chart was reviewed and I authenticate all verbal orders and agree with the evaluation and treatment provided.Corrections: (The following items were deleted from the chart) 13:52 13:46 He has had severe constipation, with secondary urinary retention, over the past pc 10-14 days. He has been seen at twice, with labs and CTs and manual disimpaction, then transferred to [facility], where he underwent procedural sedation due to extreme rectal pain, and another disimpaction. He has been only passing liquid since, 13:55 13:51 The patient has been recently seen by [facility]: 14:18 [facility] Payment Agreement lg Chart Complete MTDD
[2016-06-13] MEDS ORDERED: traMADol 50 MG TAB PO PRN (10:00)
[2016-06-13] MEDS ORDERED: NORCO, ANEXSIA 5/325MG TABLET (HYDROcodone/ACETAMINOPHEN) PO PRN ×2 (10:00)
[2016-06-13 14:00] VITALS: BP 162/78
--- NOTE | 2016-06-13 15:28 | IPNPDOC ---
Date of Service/Time Jun 13, 2016 Progress Note Hospitalist Progress Note Subjective: Mr. El is in a much better mood this morning. His pain is significantly better controlled. He reports that he is no longer bleeding very much per rectum, he has had a few loose stools, but no real bowel movement as of yet. He was able to eat a regular diet for lunch and dinner yesterday evening, although he did feel somewhat nauseated after his meals. He has been tolerating his sitz baths quite well. Objective: General: Awake, alert, in no acute distress at this time. He is once again accompanied in the room by his . HEENT: Head normocephalic, atraumatic, sclera are nonicteric. Hearing is grossly intact to conversation. Respiratory: Clear to auscultation bilaterally with no wheezes, rales, or rhonchi. Cardiovascular: Regular rate and rhythm, with no rubs, gallops, or murmur. Abdomen: Soft, nontender, nondistended, no hepatosplenomegaly appreciated. Bowel sounds present. Extremities: 2+ pulses in the radial and dorsalis pedis bilaterally. No evidence of clubbing or cyanosis. Assessment/Plan: 1. Rectal pain status post rigid sigmoidoscopy with oversewing of hemorrhoidal bleeding/bleeding ulcer. He is now eating a regular diet, although he did need some antiemetic medication after dinner last night. He has not yet had a formed stool. It appears that his bleeding is significantly improved since yesterday. 2. Chronic kidney disease, stage IV. He most likely is at his baseline 3. Coronary artery disease and stents. Restart aspirin and plavix in two weeks. 4. Hypertension. He continues to have elevated blood pressures, therefore we will resume his home dose of torsemide 10 mg daily, starting with half dose immediately this morning, since he usually takes his torsemide in the evenings. 5. Insulin-dependent diabetes mellitus type 2. Glucose is reasonably well controlled for the inpatient setting 6. Urinary retention. Palmer catheter still in place, continue with Flomax. 7. DVT prophylaxis with TEDs and sequentials My preceptor for this patient encounter was physically present in the building during the encounter and was fully available. As needed, all aspects of the patient interview, examination, medical decision making process, and medical care plan development were reviewed and approved by the preceptor. Preceptor is aware and concurs with the plan as stated in the body of this note and will attest to such by his/her cosignature. VS, I&O, 24H, Fishbone VS, I&O, 24H, Fishbone Vital Signs Date Time Temp Pulse Resp B/P Pulse Ox O2 Delivery O2 Flow Rate FiO2 06/13/16 07:19 16 Room Air 06/13/16 06:00 97.5 81 142/86 97 06/09/16 21:10 2 I&O- Last 24 Hours up to 6 AM 06/13/16 06:00 Intake Total 1650 ml Output Total 2700 ml Balance -1050 ml Laboratory Tests 2 06/12/16 17:04: Bedside Glucose (Misc Panel) 117H 06/12/16 21:08: Bedside Glucose (Misc Panel) 135H 06/13/16 06:00: Blood Urea Nitrogen 52H, Creatinine 4.15H, Sodium Level 143, Potassium Level 4.7 , Chloride Level 112H, Carbon Dioxide Level 21, Calcium Level 8.4L, Aspartate Amino Transf (AST/SGOT) 18, Alanine Aminotransferase (ALT/SGPT) 26, Alkaline Phosphatase 61, Total Bilirubin 0.2, Total Protein 6.6, Albumin 2.6L, Albumin/ Globulin Ratio 0.65L, Anion Gap 10, Glomerular Filtration Rate 15.4L 06/13/16 12:07: Bedside Glucose (Misc Panel) 120H Laboratory Tests 06/13/16 06:00 Calcium Level 8.4 L, Aspartate Amino Transf (AST/SGOT) 18, Alanine Aminotransferase (ALT/SGPT) 26, Alkaline Phosphatase 61, Total Bilirubin 0.2, Total Protein 6.6, Albumin 2.6 L, Red Blood Count 2.99 L, Mean Corpuscular Volume 90.9, Mean Corpuscular Hemoglobin 31.0, Mean Corpuscular Hemoglobin Concent 34.1, Red Cell Distribution Width 13.3 Microbiology 06/09/16 MRSA Screen - Final, Complete 06/10/16 Urine Culture - Final, Complete Enterococcus Faecalis BENJAMIN CAMACHO DO Jun 13, 2016 14:32
[2016-06-13] MEDS: TORSEMIDE 10 MG TABLET PO SCH (21:43)
[2016-06-13] MEDS: ATORVASTATIN 20 MG TAB PO SCH (21:44)
[2016-06-13] MEDS: amLODIPine 10 MG TAB PO SCH (21:44)
[2016-06-13 21:45] VITALS: BP 174/84
[2016-06-13] MEDS: LEVEMIR (INSULIN DETEMIR) 1 UNITS/0.01ML SC SCH (21:45)
[2016-06-13] MEDS: CARVedilol 12.5 MG TAB PO SCH (21:45)
[2016-06-13] MEDS: cefTRIAXone SOD 1 GM in D5W MINI-BAG PLUS 50 ML IV SCH (21:45)
[2016-06-13 22:00] VITALS: BP 174/84
[2016-06-14 06:00] VITALS: BP 164/76
[2016-06-14 07:07] LABS: MEAN CORPUSCULAR HEMOGLOBIN 30.1 pg (27.0-33.0); MEAN CORPUSCULAR HGB CONC 33.6 g/dl (32.0-36.5); MEAN CORPUSCULAR VOLUME 89.7 fl (80.0-96.0); RED CELL DISTRIBUTION WIDTH 13.4 % (11.5-14.5); WHITE BLOOD COUNT 7.1 K/mm3 (4.0-10.0)
[2016-06-14 07:26] LABS: ALBUMIN 2.8 GM/DL (3.2-5.2); ALBUMIN/GLOBULIN RATIO 0.65 (1.00-1.93); BILIRUBIN,TOTAL 0.4 MG/DL (0.2-1.0); CALCIUM LEVEL 8.6 MG/DL (8.8-10.2); CREATININE FOR GFR 4.1 MG/DL (0.70-1.30); GLOMERULAR FILTRATION RATE 15.6 (>49); POTASSIUM SERUM 4.4 MEQ/L (3.5-5.1); TOTAL PROTEIN 7.1 GM/DL (6.4-8.2)
[2016-06-14] MEDS: HumaLOG INSULIN (NovoLOG) PER UNIT SC SCH ×4 (07:30→21:00)
[2016-06-14] MEDS: SENNA 8.6 MG TAB (SENOKOT) PO SCH (08:26)
[2016-06-14] MEDS: TAMSULOSIN 0.4 MG CAP PO SCH (08:26)
[2016-06-14] MEDS: DOCUSATE SODIUM 100 MG CAP PO SCH ×2 (08:26→21:42)
[2016-06-14] MEDS: PREPARATION H SUPP (HEMORRHOID) PR SCH ×2 (08:27→21:44)
[2016-06-14] MEDS: SIMETHICONE 80 MG CHEW TAB PO SCH ×4 (10:15→21:41)
--- NOTE | 2016-06-14 20:30 | IPNPDOC ---
Date of Service/Time Jun 14, 2016 Progress Note Hospitalist Progress Note Subjective: Mr. El is pleasant to speak with once again this morning, however he states that he had a terrible night sleep. He had vomited multiple times throughout the night, and continues to have some pain. He does state that he has liquidy bowel movements, and he is passing gas. He continues to use the sitz bath which does give him relief. He is once again accompanied in the room by his Objective: General: Awake, alert, oriented 3. He is in no acute distress at this time. He is reclined in a hospital bed. HEENT: Head normocephalic, atraumatic, sclera are nonicteric. Hearing is grossly intact to conversation. Respiratory: Clear to auscultation bilaterally with no wheezes, rales, or rhonchi. Cardiovascular: Regular rate and rhythm, with no rubs, gallops, or murmur. Abdomen: Soft, nontender, nondistended, no hepatosplenomegaly appreciated. Bowel sounds present, and perhaps a little hyperactive. No masses are appreciated. Percussion is unremarkable with no significant areas of tympany or dullness. Extremities: 2+ pulses in the radial and dorsalis pedis bilaterally. No evidence of clubbing or cyanosis. Assessment: 1. Rectal pain status post rigid sigmoidoscopy with oversewing of hemorrhoidal bleeding/bleeding ulcer 2. Chronic kidney disease stage IV 3. Coronary artery disease and stents 4. Hypertension 5. Insulin-dependent diabetes mellitus type 2 6. Urinary retention 7. DVT prophylaxis Plan: Although he continues to have liquidy bowel movements and passing gas, if he worsens, may order a KUB but will monitor for now. His blood pressures continue to be elevated despite the addition of his home dose of torsemide, however his Palmer was removed, and he feels that he is not urinating as well since removal. We will continue to monitor his urinary output for the day. Otherwise, we will continue him on the remainder of his usual home regimen for his chronic conditions. My preceptor for this patient encounter was physically present in the building during the encounter and was fully available. As needed, all aspects of the patient interview, examination, medical decision making process, and medical care plan development were reviewed and approved by the preceptor. Preceptor is aware and concurs with the plan as stated in the body of this note and will attest to such by his/her cosignature. VS, I&O, 24H, Fishbone VS, I&O, 24H, Fishbone Vital Signs Date Time Temp Pulse Resp B/P Pulse Ox O2 Delivery O2 Flow Rate FiO2 06/14/16 06:00 97.9 71 18 164/76 97 Room Air 06/09/16 21:10 2 I&O- Last 24 Hours up to 6 AM 06/14/16 06:00 Intake Total 1830 ml Output Total 2600 ml Balance -770 ml Laboratory Tests 2 06/14/16 06:15: Blood Urea Nitrogen 44H, Creatinine 4.10H, Sodium Level 142, Potassium Level 4.4 , Chloride Level 108H, Carbon Dioxide Level 23, Calcium Level 8.6L, Aspartate Amino Transf (AST/SGOT) 18, Alanine Aminotransferase (ALT/SGPT) 24, Alkaline Phosphatase 58, Total Bilirubin 0.4#, Total Protein 7.1, Albumin 2.8L, Albumin/ Globulin Ratio 0.65L, Anion Gap 11, Glomerular Filtration Rate 15.6L 06/14/16 11:48: Bedside Glucose (Misc Panel) 99 06/14/16 17:28: Bedside Glucose (Misc Panel) 164H Laboratory Tests 06/14/16 06:15 Calcium Level 8.6 L, Aspartate Amino Transf (AST/SGOT) 18, Alanine Aminotransferase (ALT/SGPT) 24, Alkaline Phosphatase 58, Total Bilirubin 0.4 #, Total Protein 7.1, Albumin 2.8 L, Red Blood Count 3.27 L, Mean Corpuscular Volume 89.7, Mean Corpuscular Hemoglobin 30.1, Mean Corpuscular Hemoglobin Concent 33.6, Red Cell Distribution Width 13.4 Microbiology 06/09/16 MRSA Screen - Final, Complete 06/10/16 Urine Culture - Final, Complete Enterococcus Faecalis BENJAMIN CAMACHO DO Jun 14, 2016 20:30
[2016-06-14] MEDS: LEVEMIR (INSULIN DETEMIR) 1 UNITS/0.01ML SC SCH (21:00)
[2016-06-14] MEDS: TORSEMIDE 10 MG TABLET PO SCH (21:00)
[2016-06-14] MEDS: amLODIPine 10 MG TAB PO SCH (21:43)
[2016-06-14] MEDS: CARVedilol 12.5 MG TAB PO SCH (21:43)
[2016-06-14] MEDS: ATORVASTATIN 20 MG TAB PO SCH (21:43)
[2016-06-14] MEDS: cefTRIAXone SOD 1 GM in D5W MINI-BAG PLUS 50 ML IV SCH (21:44)
[2016-06-14 22:00] VITALS: BP 164/81
[2016-06-15] MEDS: ONDANSETRON 4MG/2ML VIAL (J2405) IV PRN (00:13)
[2016-06-15 06:00] VITALS: BP 144/74
[2016-06-15 06:45] LABS: MEAN CORPUSCULAR HEMOGLOBIN 30.7 pg (27.0-33.0); MEAN CORPUSCULAR HGB CONC 34.3 g/dl (32.0-36.5); MEAN CORPUSCULAR VOLUME 89.5 fl (80.0-96.0); RED CELL DISTRIBUTION WIDTH 13.5 % (11.5-14.5); WHITE BLOOD COUNT 8.7 K/mm3 (4.0-10.0)
[2016-06-15 06:59] LABS: ALBUMIN 2.7 GM/DL (3.2-5.2); ALBUMIN/GLOBULIN RATIO 0.68 (1.00-1.93); BILIRUBIN,TOTAL 0.3 MG/DL (0.2-1.0); CALCIUM LEVEL 8.3 MG/DL (8.8-10.2); CREATININE FOR GFR 3.89 MG/DL (0.70-1.30); GLOMERULAR FILTRATION RATE 16.5 (>49); POTASSIUM SERUM 4.3 MEQ/L (3.5-5.1); TOTAL PROTEIN 6.7 GM/DL (6.4-8.2)
[2016-06-15] MEDS: HumaLOG INSULIN (NovoLOG) PER UNIT SC SCH ×4 (07:30→21:00)
[2016-06-15] MEDS: SIMETHICONE 80 MG CHEW TAB PO SCH ×4 (08:12→21:11)
[2016-06-15] MEDS: TAMSULOSIN 0.4 MG CAP PO SCH (08:13)
[2016-06-15] MEDS: PREPARATION H SUPP (HEMORRHOID) PR SCH ×2 (08:13→21:12)
[2016-06-15] MEDS: DOCUSATE SODIUM 100 MG CAP PO SCH (08:13)
[2016-06-15 10:23] LABS: PERCENT SATURATION 22.8 % (19.7-37.4)
[2016-06-15 10:28] LABS: FOLATE 8.5 NG/ML (>5.4)
[2016-06-15 14:00] VITALS: BP 162/76
--- NOTE | 2016-06-15 18:30 | IPNPDOC ---
Date of Service/Time Jun 15, 2016 Progress Note Hospitalist Progress Note Subjective: Mr. El is once again a good spirits today. He states that he did have an episode of nausea last night, however with the administration of appropriate anti-medics he did not vomit. He states that his pain is essentially gone, and he has had not requested much pain medication at all. He reports that the sitz baths continue to help alleviate some of the discomfort as well. He continues to have flatus, and passed liquidy stool, of which he is occasionally incontinent. He has not had much of an appetite, and is only eating broth and crackers at this time. He did fail a voiding trial, and it was needed to replace the Palmer catheter. Objective: General: A and O 3. No acute distress. Reclined in the hospital bed. HEENT: Head normocephalic, atraumatic, sclera are nonicteric. Hearing is grossly intact to conversation. Respiratory: Clear to auscultation bilaterally with no wheezes, rales, or rhonchi. Cardiovascular: Regular rate and rhythm, with no rubs, gallops, or murmur. Abdomen: Soft, nontender, nondistended, no hepatosplenomegaly appreciated. Bowel sounds present. Normal to percussion Extremities: 2+ pulses in the radial and dorsalis pedis bilaterally. No evidence of clubbing or cyanosis. Assessment: 1. Rectal pain status post rigid sigmoidoscopy with oversewing of hemorrhoidal bleeding/bleeding ulcer 2. Chronic kidney disease stage IV 3. Coronary artery disease and stents 4. Hypertension 5. Insulin-dependent diabetes mellitus type 2 6. Urinary retention 7. DVT prophylaxis 8. Anemia Plan: We'll consult urology regarding his failed voiding trial and urinary retention. Will order iron studies, folate, and B12 to evaluate for his anemia. Otherwise , we'll continue to monitor his I's and O's continue with sitz baths until he is able to have a formed stool My preceptor for this patient encounter was physically present in the building during the encounter and was fully available. As needed, all aspects of the patient interview, examination, medical decision making process, and medical care plan development were reviewed and approved by the preceptor. Preceptor is aware and concurs with the plan as stated in the body of this note and will attest to such by his/her cosignature. VS, I&O, 24H, Fishbone VS, I&O, 24H, Fishbone Vital Signs Date Time Temp Pulse Resp B/P Pulse Ox O2 Delivery O2 Flow Rate FiO2 06/15/16 14:00 97.4 76 18 162/76 97 Room Air 06/09/16 21:10 2 I&O- Last 24 Hours up to 6 AM 06/15/16 06:00 Intake Total 1470 ml Output Total 1800 ml Balance -330 ml Laboratory Tests 2 06/14/16 20:45: Bedside Glucose (Misc Panel) 111 06/15/16 05:48: Blood Urea Nitrogen 38H, Creatinine 3.89H, Sodium Level 141, Potassium Level 4.3 , Chloride Level 108H, Carbon Dioxide Level 25, Calcium Level 8.3L, Aspartate Amino Transf (AST/SGOT) 19, Alanine Aminotransferase (ALT/SGPT) 22, Alkaline Phosphatase 53, Total Bilirubin 0.3, Total Protein 6.7, Albumin 2.7L, Albumin/ Globulin Ratio 0.68L, Anion Gap 8, Glomerular Filtration Rate 16.5L 06/15/16 09:16: Ferritin 187, Folate 8.5, Iron Level 46L, Total Iron Binding Capacity 202L, Transferrin % Saturation 22.8, Vitamin B12 Level 1187H 06/15/16 11:42: Bedside Glucose (Misc Panel) 135H 06/15/16 16:34: Bedside Glucose (Misc Panel) 205H Laboratory Tests 06/15/16 05:47 Red Blood Count 2.99 L, Mean Corpuscular Volume 89.5, Mean Corpuscular Hemoglobin 30.7, Mean Corpuscular Hemoglobin Concent 34.3, Red Cell Distribution Width 13.5 06/15/16 05:48 Calcium Level 8.3 L, Aspartate Amino Transf (AST/SGOT) 19, Alanine Aminotransferase (ALT/SGPT) 22, Alkaline Phosphatase 53, Total Bilirubin 0.3, Total Protein 6.7, Albumin 2.7 L Microbiology 06/09/16 MRSA Screen - Final, Complete 06/10/16 Urine Culture - Final, Complete Enterococcus Faecalis BENJAMIN CAMACHO DO Jun 15, 2016 18:27
[2016-06-15] MEDS: LEVEMIR (INSULIN DETEMIR) 1 UNITS/0.01ML SC SCH (21:00)
[2016-06-15] MEDS: ATORVASTATIN 20 MG TAB PO SCH (21:11)
[2016-06-15] MEDS: amLODIPine 10 MG TAB PO SCH (21:11)
[2016-06-15] MEDS: TORSEMIDE 10 MG TABLET PO SCH (21:12)
[2016-06-15] MEDS: CARVedilol 12.5 MG TAB PO SCH (21:12)
[2016-06-15 22:00] VITALS: BP 160/77
[2016-06-16 06:00] VITALS: BP 157/75
[2016-06-16 07:07] LABS: MEAN CORPUSCULAR HEMOGLOBIN 29.9 pg (27.0-33.0); MEAN CORPUSCULAR HGB CONC 32.5 g/dl (32.0-36.5); MEAN CORPUSCULAR VOLUME 92.1 fl (80.0-96.0); RED CELL DISTRIBUTION WIDTH 13.4 % (11.5-14.5); WHITE BLOOD COUNT 7.8 K/mm3 (4.0-10.0)
[2016-06-16 07:20] LABS: ALBUMIN 2.9 GM/DL (3.2-5.2); ALBUMIN/GLOBULIN RATIO 0.83 (1.00-1.93); BILIRUBIN,TOTAL 0.3 MG/DL (0.2-1.0); CALCIUM LEVEL 8.5 MG/DL (8.8-10.2); CREATININE FOR GFR 3.96 MG/DL (0.70-1.30); GLOMERULAR FILTRATION RATE 16.2 (>49); POTASSIUM SERUM 4.5 MEQ/L (3.5-5.1); TOTAL PROTEIN 6.4 GM/DL (6.4-8.2)
[2016-06-16] MEDS: HumaLOG INSULIN (NovoLOG) PER UNIT SC SCH ×2 (07:30→12:00)
[2016-06-16] MEDS: PREPARATION H SUPP (HEMORRHOID) PR SCH (08:10)
[2016-06-16] MEDS: SIMETHICONE 80 MG CHEW TAB PO SCH (08:10)
[2016-06-16] MEDS: TAMSULOSIN 0.4 MG CAP PO SCH (08:10)
[2016-06-16] MEDS ORDERED: FLOM5CAP PO (11:10)
--- NOTE | 2016-06-16 16:38 | DS.PDOC ---
Discharge Summary General Date of Admission Jun 13, 2016 at 13:37 Date of Discharge Jun 16, 2016 at 13:49 Discharge Summary PRIMARY CARE PHYSICIAN: Keo radha ATTENDING AT TIME OF DISCHARGE: Dr. Javon Levine M.D. DISCHARGE DIAGNOS(E)S: 1. Bleeding rectal ulcer with associated hemorrhoidal bleeding 2. Chronic kidney disease stage IV 3. Coronary artery disease and stents 4. Hypertension 5. Insulin-dependent diabetes mellitus type 2 6. Urinary retention 7. DVT prophylaxis 8. Anemia HPI & HOSPITAL COURSE: Mr. El was admitted for obstipation, after a history of multiple presentations to the ED with him during approximately a two-week interval for urinary retention and fecal impaction, during which time he also had a disimpaction performed under sedation. He was seen and evaluated by surgery who brought him into the OR and performed a rigid sigmoidoscopy was discovered that he had significant gangrenous changes to the perianal/hemorrhoidal area, as well as a hemorrhoidal bleeding ulcer which required oversewing. During the postoperative period he did have multiple bouts of nausea, vomiting, and rectal pain, all of which have subsided over the past few days, and on today the day of discharge he has not requested pain medications for 2 days, and he is able to tolerate a full diet without nausea, and he has had multiple formed stools at this time with minimal discomfort. He did have a voiding trial with a Palmer catheter was removed, but he once again demonstrated urinary retention, therefore the Palmer was replaced, and he will follow-up with urology in their office as an outpatient regarding this. PHYSICAL EXAMINATION ON DISCHARGE: VITAL SIGNS: Temperature 97.7, pulse 63, respiratory rate 18, blood pressure 157 /75, pulse oximetry 95% on room air GENERAL: Awake, alert, and oriented 3. He is in no acute distress. He is reclined in the hospital bed CARDIOVASCULAR EXAMINATION: Regular rate and rhythm, with no rubs, gallops, or murmur. RESPIRATORY EXAMINATION: Clear to auscultation bilaterally with no wheezes, rales, or rhonchi. ABDOMINAL EXAMINATION: Soft, nontender, nondistended. Bowel sounds present. A Palmer catheter is still present draining pale yellow urine with no evidence of sediment. EXTREMITIES: No clubbing or edema noted. 2+ pulses in the radial bilaterally. DISPOSITION: Home DISCHARGE INSTRUCTIONS: Follow-up with primary care provider at [facility], as well as urologist Dr. Vora within 3-5 days. If symptoms return, or if you experience worsening of your symptoms, please call your doctor or return to the emergency department. DISCHARGE MEDICATIONS: Do not take aspirin or Plavix for the next 7 days following discharge. Otherwise continue with usual home regimen. My preceptor for this patient encounter was physically present in the building during the encounter and was fully available. As needed, all aspects of the patient interview, examination, medical decision making process, and medical care plan development were reviewed and approved by the preceptor. Preceptor is aware and concurs with the plan as stated in the body of this note and will attest to such by his/her cosignature. Laboratory Data Labs 24H Laboratory Tests 2 06/16/16 06:27: Blood Urea Nitrogen 40H, Creatinine 3.96H, Sodium Level 142, Potassium Level 4.5 , Chloride Level 109H, Carbon Dioxide Level 24, Calcium Level 8.5L, Aspartate Amino Transf (AST/SGOT) 20, Alanine Aminotransferase (ALT/SGPT) 29, Alkaline Phosphatase 60, Total Bilirubin 0.3, Total Protein 6.4, Albumin 2.9L, Albumin/ Globulin Ratio 0.83L, Anion Gap 9, Glomerular Filtration Rate 16.2L 06/16/16 12:46: Bedside Glucose (Misc Panel) 106 CBC/BMP Laboratory Tests 06/16/16 06:27 Calcium Level 8.5 L, Aspartate Amino Transf (AST/SGOT) 20, Alanine Aminotransferase (ALT/SGPT) 29, Alkaline Phosphatase 60, Total Bilirubin 0.3, Total Protein 6.4, Albumin 2.9 L, Red Blood Count 3.04 L, Mean Corpuscular Volume 92.1, Mean Corpuscular Hemoglobin 29.9, Mean Corpuscular Hemoglobin Concent 32.5, Red Cell Distribution Width 13.4 Medications Scheduled Amlodipine Besylate (Amlodipine Besylate) 10 Mg Tab 10 MG PO QHS Atorvastatin Calcium (Atorvastatin Calcium) 20 Mg Tab 60 MG PO QHS Carvedilol (Carvedilol) 12.5 Mg Tab 25 MG PO QHS TAKES 2 12.5MG TABS AT QHS Cinnamon Bark (Cinnamon) 500 Mg Tab 1,000 MG PO QHS Insulin Glargine (Lantus Solostar) 100 Unit/Ml Inj 50 UNITS SC QHS Insulin Human Lispro (Humalog) 1 Units/0.01 Ml Inj 1 DOSE SC AC Tamsulosin Hydrochloride (Flomax) 0.4 Mg Cap 0.4 MG PO DAILY Torsemide (Torsemide) 10 Mg Tab 10 MG PO QHS Allergies Coded Allergies: No Known Drug Allergy (Verified Allergy, Unknown, 09/04/12) BENJAMIN CAMACHO DO Jun 16, 2016 16:38
== END 2016-06-16 13:49 | disposition home or self-care (01) | DRG 226 ==
LOC: M ED 12:14 → M ED INP 15:40 → M MSPAV 18:14 → M ICU 19:14 → M MSPAV 06-10 15:45 → OBSVTOIN 06-13 13:37
PROVIDERS: ADMIT Hospitalist; ATTEND Internal Medicine
PROC: 0DL Gastrointestinal System, Occlusion (ICD-10-PCS; principal; 2016-06-13)
DX: K59.00 Constipation, unspecified (principal); I96 Gangrene, not elsewhere classified; N18.4 Chronic kidney disease, stage 4 (severe); L89.899 Pressure ulcer of other site, unspecified stage; D62 Acute posthemorrhagic anemia; K62.6 Ulcer of anus and rectum; E11.9 Type 2 diabetes mellitus without complications; I12.9 Hypertensive chronic kidney disease with stage 1 through stage 4 chronic kidney disease, or unspecified chronic kidney disease; E78.5 Hyperlipidemia, unspecified; I25.10 Atherosclerotic heart disease of native coronary artery without angina pectoris; R33.9 Retention of urine, unspecified; K64.9 Unspecified hemorrhoids; Z79.4 Long term (current) use of insulin; Z95.9 Presence of cardiac and vascular implant and graft, unspecified; Z79.899 Other long term (current) drug therapy; Z82.49 Family history of ischemic heart disease and other diseases of the circulatory system; Z80.0 Family history of malignant neoplasm of digestive organs; Z96.641 Presence of right artificial hip joint

== ENCOUNTER → 2016-06-20 | Outpatient (REF) | payer OTHER, MEDICARE ==
[~2016-06-20] MED LIST changes: +AMLO10TA2 PO; +ASPI1TAB PO; +ATOR1TAB21 PO; +CARV12.5 PO; +CINN500T PO; +FLOM5CAP PO; +INSUHUMDS SC; +LANTINJ4 SC; +PLAV75TA38 PO; +TORS10TA3 PO
[2016-06-20 17:35] LABS: BASO % 0.4 % (0.0-1.0); EOS # 0.2 K/mm3 (0.0-0.50); EOS % 2.5 % (0.0-3.0); LARGE UNSTAINED CELL # 0.1 K/mm3 (0.0-0.4); LARGE UNSTAINED CELL % 1.5 % (0.0-4.0); LYMPH # 1.5 K/mm3 (1.5-4.5); LYMPH % 19.6 % (24.0-44.0); MEAN CORPUSCULAR HGB CONC 32.7 g/dl (32.0-36.5); MEAN CORPUSCULAR VOLUME 91.7 fl (80.0-96.0); MONO # 0.5 K/mm3 (0.0-0.8); MONO % 6.7 % (0.0-5.0); NEUTROPHILS # 5.3 K/mm3 (1.8-7.7); NEUTROPHILS % 69.4 % (36.0-66.0); PLATELET COUNT, AUTOMATED 379 k/mm3 (150-450); RED CELL DISTRIBUTION WIDTH 14.1 % (11.5-14.5); WHITE BLOOD COUNT 7.6 K/mm3 (4.0-10.0)
[2016-06-20 18:39] LABS: ALBUMIN 3.4 GM/DL (3.2-5.2); ALBUMIN/GLOBULIN RATIO 0.87 (1.00-1.93); BILIRUBIN,TOTAL 0.3 MG/DL (0.2-1.0); CALCIUM LEVEL 8.8 MG/DL (8.8-10.2); CREATININE FOR GFR 4.13 MG/DL (0.70-1.30); GLOMERULAR FILTRATION RATE 15.4 (>49); POTASSIUM SERUM 4.7 MEQ/L (3.5-5.1); TOTAL PROTEIN 7.3 GM/DL (6.4-8.2)
== END ==
LOC: M SFHCCAPE 11:53
PROVIDERS: ATTEND Physician Assistant
DX: R33.9 Retention of urine, unspecified (principal)
CPT/HCPCS: 80053; 85025; G0463

== ENCOUNTER → 2018-07-16 | Outpatient (REF) | payer OTHER, MEDICARE ==
[~2018-07-16] MED LIST changes: -AMLO10TA2 PO; +AMLO10TA5 PO; +FLOM0.4C39 PO; -FLOM5CAP PO; +PLAV1TAB2 PO; -PLAV75TA38 PO
[2018-07-16 16:49] LABS: ALBUMIN 4.2 GM/DL (3.2-5.2); ALT/SGPT 25 U/L (12-78); BASO % 0.6 % (0.0-1.0); BILIRUBIN,TOTAL 0.7 MG/DL (0.2-1.0); BLOOD UREA NITROGEN 19 MG/DL (7-18); CALCIUM LEVEL 9.2 MG/DL (8.8-10.2); CARBON DIOXIDE LEVEL 31 MEQ/L (21-32); CHLORIDE LEVEL 102 MEQ/L (98-107); CHOLESTEROL LEVEL 130 MG/DL (<200); CHOLESTEROL RISK RATIO 1.805 (<5); CREATININE FOR GFR 1.21 MG/DL (0.70-1.30); EOS # 0.2 10^3/uL (0.0-0.50); EOS % 2.2 % (0.0-3.0); FREE T4 1.04 NG/DL (0.76-1.46); GLOMERULAR FILTRATION RATE > 60.0 (>49); GLUCOSE, FASTING 152 MG/DL (70-100); HDL CHOLESTEROL 72 MG/DL (>40); HEMATOCRIT 42.1 % (42.0-52.0); HEMOGLOBIN 14.2 g/dl (13.5-17.5); LDL CHOLESTEROL 44 MG/DL (<100); LYMPH # 1.2 10^3/uL (1.5-4.5); LYMPH % 17.5 % (24.0-44.0); MEAN CORPUSCULAR HEMOGLOBIN 31.3 pg (27.0-33.0); MEAN CORPUSCULAR HGB CONC 33.7 g/dl (32.0-36.5); MEAN CORPUSCULAR VOLUME 92.9 fl (80.0-96.0); MONO # 0.7 10^3/uL (0.0-0.8); MONO % 10.7 % (0.0-5.0); NEUTROPHILS # 4.6 10^3/uL (1.8-7.7); NEUTROPHILS % 68.4 % (36.0-66.0); NON-HDL-C 58 MG/DL; PLATELET COUNT, AUTOMATED 230 10^3/uL (150-450); POTASSIUM SERUM 4.1 MEQ/L (3.5-5.1); RED BLOOD COUNT 4.53 10^6/uL (4.30-6.10); SODIUM LEVEL 141 MEQ/L (136-145); TOTAL PROTEIN 7.2 GM/DL (6.4-8.2); TRIGLYCERIDES LEVEL 71 MG/DL (<150); WHITE BLOOD COUNT 6.7 10^3/uL (4.0-10.0)
[2018-07-16 17:12] LABS: MALB URINE SIEMENS 80.5 MG/L; MAU/CREAT RATIO 73.8 MCG/MG (0.0-30.0)
[2018-07-16 17:23] LABS: HEMOGLOBIN A1c 7.6 %
== END ==
LOC: M SFHCCAPE 10:17
PROVIDERS: ATTEND Physician Assistant
DX: Z01.818 Encounter for other preprocedural examination (principal); H57.9 Unspecified disorder of eye and adnexa; E11.8 Type 2 diabetes mellitus with unspecified complications; Z94.0 Kidney transplant status
CPT/HCPCS: 36415; 80053; 80061; 82043; 83036; 84439; 84443; 85025; G0103; G0463

== ENCOUNTER → 2019-07-22 | Outpatient (REF) | payer MEDICARE, OTHER ==
[~2019-07-22] MED LIST changes: -ASPI1TAB PO; +ASPI81TA26 PO
[2019-07-22 17:09] LABS: BASO % 0.5 % (0.0-1.0); EOS # 0.2 10^3/uL (0.0-0.5); EOS % 2.4 % (0.0-3.0); HEMATOCRIT 42.1 % (42.0-52.0); LYMPH # 1.4 10^3/uL (1.5-5.0); LYMPH % 17.9 % (24.0-44.0); MEAN CORPUSCULAR HGB CONC 33.3 g/dl (32.0-36.5); MEAN CORPUSCULAR VOLUME 93.1 fl (80.0-96.0); MONO # 0.8 10^3/uL (0.0-0.8); MONO % 10.5 % (0.0-5.0); NEUTROPHILS # 5.3 10^3/uL (1.5-8.5); NEUTROPHILS % 68.2 % (36.0-66.0); PLATELET COUNT, AUTOMATED 228 10^3/uL (150-450); RED BLOOD COUNT 4.52 10^6/uL (4.30-6.10); WHITE BLOOD COUNT 7.8 10^3/uL (4.0-10.0)
[2019-07-22 17:36] LABS: ALBUMIN 3.8 GM/DL (3.2-5.2); BILIRUBIN,TOTAL 0.7 MG/DL (0.2-1.0); CALCIUM LEVEL 9.9 MG/DL (8.8-10.2); CHOLESTEROL RISK RATIO 2.258 (<5); CREATININE FOR GFR 1.34 MG/DL (0.70-1.30); GLOMERULAR FILTRATION RATE 56.1 (>42); POTASSIUM SERUM 3.9 MEQ/L (3.5-5.1); THYROID STIMULATING HORMONE 1.4 uIU/ML (0.358-3.740); TOTAL PROTEIN 7.4 GM/DL (6.4-8.2)
== END ==
LOC: M SFHCCAPE 07:11
PROVIDERS: ATTEND Physician Assistant
DX: I10 Essential (primary) hypertension (principal); E11.8 Type 2 diabetes mellitus with unspecified complications; E78.5 Hyperlipidemia, unspecified; Z12.5 Encounter for screening for malignant neoplasm of prostate
CPT/HCPCS: 36415; 80053; 80061; 83036; 84443; 85025; G0103